=== PATIENT | female | born 1995 | race Caucasian/White ===

== ENCOUNTER 2019-03-18 20:20 | Outpatient (CLI) | payer MEDICAID, SELFPAY ==
[2019-03-18 20:37] VITALS: BP 141/77; PULSE 94; RESP 16; TEMP 36.7
[2019-03-18 21:07] VITALS: BMI 40.6
[2019-03-18 21:17] VITALS: BP 139/70; PULSE 86; RESP 16
[2019-03-18 21:23] VITALS: BP 139/70; PULSE 86; RESP 16; TEMP 36.7
== END 2019-03-18 21:37 | disposition home or self-care (01) ==
LOC: OPOB 20:31 → OBGYN 21:29 → OPOB 03-23 14:44
PROVIDERS: Family Provider Obstetrics & Gynecology; PCP Obstetrics & Gynecology; Visit Provider Obstetrics & Gynecology
DX: O36.8190 Decreased fetal movements, unspecified trimester, not applicable or unspecified (principal); Z3A.00 Weeks of gestation of pregnancy not specified
CPT/HCPCS: 59025; 83986; 99211

== ENCOUNTER 2019-03-19 22:55 | Outpatient (CLI) | payer MEDICAID, SELFPAY ==
[2019-03-19 22:59] VITALS: BP 118/60; PULSE 100; RESP 18
[2019-03-19 23:00] VITALS: TEMP 36.4
[2019-03-19 23:36] VITALS: RESP 20; TEMP 36.6
[2019-03-20 00:01] LABS: Nitrazine Paper, PH Negative
== END 2019-03-19 23:46 | disposition home or self-care (01) ==
LOC: OPOB 22:57 → OBGYN 23:39 → OPOB 03-23 14:48
PROVIDERS: Family Provider Obstetrics & Gynecology; PCP Obstetrics & Gynecology; Visit Provider Obstetrics & Gynecology
DX: O42.90 Premature rupture of membranes, unspecified as to length of time between rupture and onset of labor, unspecified weeks of gestation (principal)
CPT/HCPCS: 83986; 99211

== ENCOUNTER 2019-03-22 12:25 | Inpatient (IN) | payer MEDICAID, SELFPAY ==
[2019-03-22] VITALS (41 sets, daily range): BP systolic 0–170; BP diastolic 0–84; PULSE 73–97; RESP 15–16; TEMP 36.5–37; O2SAT 98–99; BMI 41.3
[2019-03-22] MEDS: miSOPROStol 100 mcg tablet 25 MCG VAGINAL (14:04)
[2019-03-22 15:56] LABS: Basophils % 0.2 %; Eosinophils # 0.1 10^3/uL (0.0-0.8); Eosinophils % 0.5 %; Hematocrit 34.3 % (37.0-47.0); Hemoglobin 10.8 g/dL (11.5-15.3); Lymphocytes # 1.2 10^3/uL (0.8-4.8); Lymphocytes % 12.4 %; Mean Corpuscular HGB Conc 31.5 g/dL (30.0-36.0); Mean Corpuscular Volume 88.9 fL (81-99); Mean Platelet Volume 12.3 fL (7.4-10.4); Monocytes # 0.5 10^3/uL (0.2-0.9); Monocytes % 4.6 %; Neutrophils % 81.9 %; Nucleated Red Blood Cells % 0 %; Platelet Count 215 10^3/cmm (130-400); Red Blood Count 3.86 10^6/uL (4.1-5.3); Red Cell Distribution Width 13.6 % (12.1-15.1); White Blood Count 9.8 10^3/uL (4.0-10.0)
[2019-03-22 18:21] LABS: Alanine Aminotransferase 7 U/L (0-33); Albumin Level 3.6 g/dL (3.5-5.2); Alkaline Phosphatase 133 IU/L (35-105); Anion Gap 17.6 (5-19); Aspartate Amino Transferase 10 U/L (0-32); Blood Urea Nitrogen 8 mg/dL (6-20); Calcium 9.6 mg/Dl (8.6-10.0); Carbon Dioxide 21 mmol/L (22-29); Chloride 99 mmol/L (98-107); Globulin 3.3 g/dL (1.3-4.6); Glomerular Filtration Rate 201.5 mL/min (90-130); Glucose 111 mg/dL (74-109); Potassium 3.6 mmol/L (3.5-5.1); Sodium 134 mmol/L (136-145); Total Bilirubin 0.2 mg/dL (0.15-1.2); Total Protein 6.9 g/dL (6.6-8.7); Uric Acid 3.4 mg/dL (2.4-5.7)
[2019-03-22 18:53] LABS: Urine Creatinine 199 mg/dL (28-217)
[2019-03-22 19:02] LABS: UPRO/UCREAT Ratio 0.08 mg/mg CR; Urine Protein Random 16 mg/dL
[2019-03-22 19:32] LABS: Add Urine Microscopic? YES; Bilirubin Urine Neg (NEGATIVE); Blood Urine Neg (Negative); Glucose Urine UA Norm (Normal); Ketones Urine Negative (Negative); Leukocyte Esterase Urine Negative (Negative); Nitrate Urine Negative (Negative); Protein Urine Neg (Negative); Urine Appearance Turbid (CLEAR); Urine Color Yellow (Yellow); Urobilinogen Urine 1 mg/dL (Negative); pH Urine 5 (5-7)
[2019-03-22 19:33] LABS: Add Urine Culture? No; Amorphous Sediment Urine 4+; Bacteria Urine TRACE; Squamous Epithelial Cell Urine 0-4 (0-5); WBC Urine 0-4 /hpf (0-5)
--- NOTE | 2019-03-22 23:18 | PC.NURSE ---
RN at bedside to assess elevated BP. Patient reports that she was adjusting in bed and cuff noted to have slid down around elbow. The cuff was then readjusted and BP retaken, reading WNL. Will continue to monitor.
[2019-03-23] VITALS (82 sets, daily range): BP systolic 0–155; BP diastolic 0–82; PULSE 69–104; RESP 16–17; TEMP 36.7–37.1; O2SAT 99
[2019-03-23] MEDS: dextrose 5%-lactated ringers 1,000 ML 125 ML IV ×2 (08:54→17:13)
[2019-03-23] MEDS: oxytocin 30 UNIT/500 ML BAG IV (08:55)
--- NOTE | 2019-03-23 10:39 | PM.PN ---
Subjective Subjective: Interval history: Patient is a 23-year-old 1, para 0 with an LMP of 06/14/2018 and an EDC of 03/21/2019 based on LMP and consistent with 22-week ultrasound, which places her at 40-2/7 weeks gestation today. She presented to L&D at 12: 25 on 03/22/2019 for induction of labor due to term . She was noted to have mildly elevated blood pressures on admission and was evaluated for preeclampsia with a negative protein creatinine ratio. The rest of the blood testing was also negative. Blood pressure for the most part has remained normal since that time. She received 1 dose of Cytotec and proceeded to contract regularly. She made slow cervical change during the night. This morning, she was without complaints. She reported mild cramping before being started on Pitocin this morning. She denied leaking of fluid. She denied vaginal bleeding. Reports baby has been moving. Vitals/I&O/Wt Last Vital Signs Temp 98.8 F 03/23/19 08:55 Pulse 74 03/23/19 10:08 Resp 17 03/23/19 08:55 BP 0/0 03/23/19 10:38 Pulse Ox 98 03/22/19 22:03 03/22/19 03/23/19 03/23/19 22:59 06:59 14:59 Intake Total 3.833 / 3.833 Balance 3.833 / 3.833 Weight last 48 hrs Weight 264 lb Physical Exam Const: COMMON NORMALS: no apparent distress, average body habitus, alert and well nourished GENERAL APPEARANCE: well developed ORIENTATION/CONSCIOUSNESS: Yes oriented to person, Yes oriented to place and Yes oriented to time Resp: COMMON NORMALS: normal respiratory effort and clear to auscultation bilaterally AUSCULTATION: clear to auscultation bilaterally Cardio: COMMON NORMALS: regular rate, regular rhythm, no gallops, no murmurs and no rub RATE: regular rate RHYTHM: regular rhythm GI: COMMON NORMALS: soft to palpation, non-tender, no hepatosplenomegaly and no masses (Except for nontender gravid uterus.) AUSCULTATION: Yes normoactive bowel sounds PALPATION: Yes soft, Yes no hepatosplenomegaly and No hernia : EXTERNAL FEMALE EXAM: No hernia OTHER: Cervix: Per nurse: 50% effaced 4 cm dilated -2 station monitoring: heart rate 140s with moderate variability and accelerations present. No decelerations noted. Contractions every 1-1/2 to 5 minutes on Pitocin. Neuro: SENSORIUM/ORIENTATION: Yes alert, Yes oriented to person, Yes oriented to place and Yes oriented to time Psych: COMMON NORMALS: affect normal MOOD & AFFECT: Yes euthymic mood A&P Assessment and plan (1) Encounter for supervision of normal first : Patient has received 1 dose of Cytotec as of yesterday afternoon. She is contracted through the evening and most of the night. This morning, contractions had significantly slowed. She was allowed to eat this morning and was then started on Pitocin. She will be continued on Pitocin for induction through the day. Depending upon response by this evening, she may be continued on Pitocin or potentially switch back to Cytotec again. Discussed with patient that inducing labor can be a very long drawn out process that could take several days. Status: Acute Qualifiers: Trimester: third trimester Qualified Code(s): Z34.03 - Encounter for supervision of normal first , third trimester Code(s): Z34.00 - Encounter for supervision of normal first , unspecified trimester (2) Gestational hypertension: Patient had elevated blood pressures initially with occasional intermittently elevated 1 since. She was evaluated for preeclampsia with negative protein creatinine ratio. None of the blood pressures have met criteria for severe range. Continue to monitor blood pressures. Status: Acute Qualifiers: Trimester: third trimester Qualified Code(s): O13.3 - Gestational [-induced] hypertension without significant proteinuria, third trimester Code(s): O13.9 - Gestational [-induced] hypertension without significant proteinuria, unspecified trimester Attestations Medical Necessity Statement*: Patient being induced for term with gestational hypertension present. Coding Level of Care Code Acute Interior Decorator Paperhanging for Garret Herring Diagnoses Encounter for supervision of normal first Z34.03 Trimester: third trimester Gestational hypertension O13.3 Trimester: third trimester
[2019-03-23] MEDS: lactated ringers 1,000 ML 999 ML IV (21:25)
--- NOTE | 2019-03-23 21:29 | P.PN_ITS ---
Pre-Anesthetic Assessment Pre-Anesthetic Assessment: Height/Weight: Height 1.7 m Weight 119.748 kg Temp Pulse Resp BP Pulse Ox 98.1 F 81 17 0/0 99 03/23/19 12:30 03/23/19 21:58 03/23/19 08:55 03/23/19 22:00 03/23/19 21:58 Preop Diagnosis: IUP Proposed Procedure: Epidural Familial anesthetic complications: none Was Beta Karlo taken within 24 hours: N/A Last intake: 1200 Exam: Pre-Anes Outpt Exam: alert, oriented x 3, clear to auscultation bilaterally and regular rate & rhythm Airway: Submandibular: WNL Cervical ROM: WNL MP: 2 Dentition: Chipped Additional comments: tongue ring History/ROS: No significant complaints Pulmonary: Pulmonary: None reported CV/HEM: CV/HEM: None reported : : None reported Hepatic: Hepatic: None reported GI: GI: GERD Comments: related Metabolic: Metabolic: None reported Musc/skel: Comments: knee surgery as a child Neuropsych: Neuropsych: Anxiety Anesthetic Plan: ASA status: II Anesthesia: Regional (specify below) Other: labor epidural Risk of > 500 ml blood loss (7ml/kg in children): No Meds/Allergies Current Medications: Current Medications Generic Name Dose Route Start Last Admin Trade Name Freq PRN Reason Stop Dose Admin Dextrose/Lactated Ringer's 1,000 mls @ 125 m ls/hr 03/22/19 13:30 03/23/19 17:13 Dextrose 5%-Lact ated Ringers IV 125 mls/hr .Q8H JOSEFINA Administration Ropivacaine 200 mg in 100 mls @ 13 mls/hr 03/22/19 23:45 03/23/19 22:01 Naropin Premix EPIDURAL 13 mls/hr .Q7H42M JOSEFINA Administration Oxytocin 30 unit in 500 ml s @ 0 mls/hr 03/23/19 07:15 03/23/19 15:00 Pitocin IV 20 mls/hr .Q0M JOSEFINA Titration Protocol Per Protocol Lactated Ringer's 1,000 mls @ 999 m ls/hr 03/23/19 21:21 03/23/19 21:25 Lactated Ringers IV 999 mls/hr .Q1H1M PRN Administration HYPOTENSION PFSH Anesthesia PFSH: Family History (Updated 03/22/19 @ 16:25 by Margret Cohn RN) Father Diabetes Female Reproductive History: : 1 Data Anesthesia Labs: Other Labs: Laboratory Results - last 48 hr 03/22/19 03/22/19 03/22/19 13:05 16:30 16:30 WBC 9.8 RBC 3.86 L Hgb 10.8 L Hct 34.3 L MCV 88.9 MCH 28.0 MCHC 31.5 RDW 13.6 Plt Count 215 MPV 12.3 H Neut % (Auto) 81.9 Lymph % (Auto) 12.4 Davison % (Auto) 4.6 Eos % (Auto) 0.5 Baso % (Auto) 0.2 Neut # (Auto) 8.0 H Lymph # (Auto) 1.2 Davison # (Auto) 0.5 Eos # (Auto) 0.1 Baso # (Auto) 0.0 Nucleated RBC % (a uto) 0 Nucleated RBCs # 0.0 Sodium Potassium Chloride Carbon Dioxide Anion Gap BUN Creatinine GFR Calculation Glucose Uric Acid Calcium Total Bilirubin AST ALT Alkaline Phosphata se Total Protein Albumin Globulin Urine Color Yellow Urine Appearance Turbid Urine pH 5 Ur Specific Gravit y 1.020 Urine Protein Neg Urine Glucose (UA) Norm Urine Ketones Negative Urine Occult Blood Neg Urine Nitrate Negative Urine Bilirubin Neg Urine Urobilinogen 1 H Ur Leukocyte Telma ase Negative Urine RBC None Urine WBC 0-4 H Ur Squamous Epith Cells 0-4 H Amorphous Sediment 4+ Urine Bacteria Trace U Random Total Pro tein 16 Urine Creatinine 199 Protein/Creatinin Ratio 0.08 03/22/19 17:38 WBC RBC Hgb Hct MCV MCH MCHC RDW Plt Count MPV Neut % (Auto) Lymph % (Auto) Davison % (Auto) Eos % (Auto) Baso % (Auto) Neut # (Auto) Lymph # (Auto) Davison # (Auto) Eos # (Auto) Baso # (Auto) Nucleated RBC % (a uto) Nucleated RBCs # Sodium 134 L Potassium 3.6 Chloride 99 Carbon Dioxide 21 L Anion Gap 17.6 BUN 8 Creatinine 0.4 L GFR Calculation 201.5 H Glucose 111 H Uric Acid 3.4 Calcium 9.6 Total Bilirubin 0.2 AST 10 ALT 7 Alkaline Phosphata se 133 H Total Protein 6.9 Albumin 3.6 Globulin 3.3 Urine Color Urine Appearance Urine pH Ur Specific Gravit y Urine Protein Urine Glucose (UA) Urine Ketones Urine Occult Blood Urine Nitrate Urine Bilirubin Urine Urobilinogen Ur Leukocyte Telma ase Urine RBC Urine WBC Ur Squamous Epith Cells Amorphous Sediment Urine Bacteria U Random Total Pro tein Urine Creatinine Protein/Creatinin Ratio Cardiac Studies: No Data to Display
--- NOTE | 2019-03-23 22:04 | ANES.PROC ---
Anesthesia Procedures Procedure/Date: 03/23/19 Epidural: Time Out Performed: Yes Consents Signed: Procedure Consent Consent: from patient Lumbar Level: L3-L4 Epidural position: sitting Epidural procedure: sterile prep of area, 1% lidocaine to numb the area, 18 g needle, negative for paresthesia passed, neg for paresthesia, test dose given, 1.5% xylocaine 1:200k epi, placed PCEA, no systemic response, sterile dressing applied, L.U.D. no apparent complications and 0.2% Ropiavacaine @ mls/hr Additional Comments: 13mL/hr
[2019-03-24] VITALS (81 sets, daily range): BP systolic 0–180; BP diastolic 0–99; PULSE 70–109; RESP 16; TEMP 36.4–37.3; O2SAT 96–99
[2019-03-24] MEDS: dextrose 5%-lactated ringers 1,000 ML 125 ML IV ×2 (03:28→12:09)
--- NOTE | 2019-03-24 08:11 | PM.PN ---
Subjective Subjective: Interval history: 23-year-old female with an estimated gestational age at 40 weeks. Refers feeling fine Vitals/I&O/Wt Last Vital Signs Temp 98.8 F 03/24/19 04:00 Pulse 83 03/24/19 08:03 Resp 17 03/23/19 08:55 BP 99/65 03/24/19 08:03 Pulse Ox 99 03/23/19 21:58 03/23/19 03/24/19 03/24/19 22:59 06:59 14:59 Intake Total 2065.050 1100 / 3166.050 Output Total 400 / 400 Balance 2065.050 700 / 2766.050 Weight last 48 hrs Weight 264 lb Physical Exam Narrative: EXAM NARRATIVE: GA: Alert and oriented ?3. Lungs: Clear to auscultation bilaterally. Heart: Regular rhythm and rate. Abdomen: Gravid, fundal height Correlates dates, nontender. PEDIATRIC MEDICAL ASSISTANT: SVE; dilation: 10 cm, effacement: 100 %, station: +2, presentation: Vertex, membranes: AROM. Extremities: no edema, no cyanosis, no calves pain. heart tracing: Basal rate: 140 bpm, Variability: Moderate, Accelerations: Present, Decelerations: Absent, Contractions: Every 4-5 minutes. A&P Assessment and plan (1) Term : Patient in active labor. Progressing adequately. heart tracing category 1. scalp stimulation. Anticipate vaginal delivery. Continue monitoring. Status: Acute Code(s): Z34.90 - Encounter for supervision of normal , unspecified, unspecified trimester Attestations Medical Necessity Statement*: My professional opinion per admitting diagnosis Coding Level of Care Code Acute Wire Bender Hand for Chg Fwd Diagnoses Term Z34.90
[2019-03-24] MEDS: miSOPROStol 200 mcg Tablet 800 MCG PR (09:05)
[2019-03-24] MEDS: oxytocin 30 UNIT/500 ML BAG 600 UNIT IV (09:08)
--- NOTE | 2019-03-24 09:08 | PM.DELIVERY ---
 Delivery Note: Date of delivery: 03/24/19 Pre-delivery diagnoses: Term Post-delivery diagnoses: Term delivered Procedure: Spontaneous vaginal delivery Delivering Physician: Asa garzon M.D. Estimated blood loss (mL): 500 Findings: Baby boy, Apgars 8/9 weight 4111 g Pre-Delivery Course: The patient is a 23yo at 40 +2 weeks EGA who has been receiving care from [facility]. Admitted to labor and delivery for elective induction. She denies vaginal bleeding or rupture of membranes. LMP: 06/14/2018 Estimated date of confinement: 03/21/2019 by LMP and confirmed by US on 11/18/18. CC: Elective induction HPI: Received appropriate care. Daily vitamins since two months prior to conception. labs have all been normal, including negative for HIV. She was found to Negative for Group B Strep from screening at 36 weeks. She has gained approximately 52 lbs throughout the . She denies a history of HTN during care . Glucose tolerance screening for gestational diabetes was negative. Delivery: The patient was noted to be complete and pushing, so was placed in the dorsal lithotomy position, prepped and draped in the usual sterile fashion for a vaginal delivery. Pt. Noted to have epidural anesthesia. At 0 858 the patient delivered a viable At 40 weeks weighing 4111 g with scores of 8 and 9 at one and five minutes, respectively. The vertex was delivered spontaneously over Intact perineum. The patient was asked to push and the head delivered spontaneously in the CORINA position, over an intact perineum. A nuchal cord was checked and none noted. The anterior shoulder delivered easily and the posterior shoulder followed. The remainder of the was easily delivered and the oropharynx and nasopharynx was bulb suctioned. The was noted to have spontaneous cry and spontaneous movement of all four extremities. The cord was clamped x 2 and cut and noted to have 2 arteries and one vein. The infant was passed to the Mother's abdomenwhere Nursing personnel were in attendance. Cord blood sample was then Obtained. The placenta delivered intact Spontaneously and the uterus Was explored. 20 units of Pitocin was placed in the IV bag to firm the uterus. Examination of the cervix and vaginal vault did not reveal any lacerations. A vaginal pack was then placed. 800 mg of misoprostol was given rectally due to uterine atony. Examination of the perineum showed No lacerations. The vaginal pack was then removed. The patient tolerated this procedure well, and recovered in L&D with her infant To the OB martinez. All sponge and needle counts were correct. Post-Delivery Status: Stable A&P Assessment and plan (1) Term delivered: Status: Acute Code(s): O80 - Encounter for full-term uncomplicated delivery Coding Level of Care Code Acute Soil Biology Teacher for Chg Fwd Diagnoses Term delivered O80
--- NOTE | 2019-03-24 12:28 | PC.NURSE ---
BABY LATCHES BUT GOES TO SLEEP. COMES OFF THE BREAST AFTER BRIEF BURST OF SUCKING. TAUGHT MOM TO [employer] COLOSTRUM. SHE OBTAINED ABOUT 1 ML OF COLOSTRUM AND THIS WAS FED TO BABY BY CUP. BABY ACTUALLY STARTED TO SHOW INTEREST IN FEEDING, MOM UP TO BATHROOM AND NEEDED HER IV RESTARTED. WILL OFFER BREAST ONCE MOM SETTLED AGAIN.
[2019-03-24] MEDS: docusate sodium 100 mg Capsule PO (18:12)
[2019-03-24 21:10] LABS: Hematocrit 28.7 % (37.0-47.0); Hemoglobin 9.2 g/dL (11.5-15.3); Mean Corpuscular HGB Conc 32.1 g/dL (30.0-36.0); Mean Corpuscular Volume 87.5 fL (81-99); Mean Platelet Volume 11.3 fL (7.4-10.4); Platelet Count 186 10^3/cmm (130-400); Red Blood Count 3.28 10^6/uL (4.1-5.3); Red Cell Distribution Width 13.6 % (12.1-15.1); White Blood Count 12.5 10^3/uL (4.0-10.0)
[2019-03-25 06:30] VITALS: BP 96/63; PULSE 92; RESP 16; TEMP 36.8
[2019-03-25] MEDS: lanolin oint 7 gm 1 APPLIC TOPICAL (10:01)
[2019-03-25] MEDS: benzocaine-menthol 78 gm Canister 1 SPRAY TOPICAL (10:01)
[2019-03-25] MEDS: prenatal vitamin Capsule 1 CAP PO (10:02)
[2019-03-25] MEDS: docusate sodium 100 mg Capsule PO (10:02)
[2019-03-25 10:06] VITALS: BP 104/62; PULSE 89; RESP 16; TEMP 36.4; O2SAT 98
[2019-03-25 15:31] VITALS: BP 107/67; PULSE 97; RESP 18; TEMP 36.8; O2SAT 97
--- NOTE | 2019-03-25 17:33 | P.DS_ITS ---
Discharge Providers ELECTRIC BLANKET WIRER Date of Admission: 03/22/19 12:25 Date of Discharge: 03/25/19 Attending Provider at Admission: Asa Rowley Attending Provider at Discharge: Asa Rowley Primary Care Provider: Asa Rowley Diagnoses at Discharge Discharge Diagnosis (1) Term delivered: Status: Acute Problem details: P1 status post spontaneous vaginal delivery day 1. observation without complications. Hospital Course Hospital Course: 23-year-old female with an estimated gestational age of 40 weeks, admitted for elective induction. Misoprostol was given for cervical ripening. She had adequate progression of labor and had a spontaneous vaginal delivery Without complications. She delivered a male Apgars 8/9. observation was uneventful. She is afebrile hemodynamically stable. Tolerating diet well. Ambulating without difficulty. Information Peripartum Data: Delivery Method: Vaginal Physical Exam Const: COMMON NORMALS: no apparent distress, oriented x3, healthy appearing, alert and well nourished EXAM LIMITATIONS: no altered mental status GENERAL APPEARANCE: cooperative, well kempt and well hydrated ORIENTATION/CONSCIOUSNESS: Yes awake HENMT: COMMON NORMALS: normocephalic and head/scalp atraumatic HEAD & SCALP: normocephalic and atraumatic Neck/C-Spine: COMMON NORMALS: full ROM, no lymphadenopathy, no meningeal signs and no JVD GENERAL: Yes normal visual inspection Chest: NIPPLE/AREOLA: Yes nipples/areola normal and Yes nipple discharge (Colostrum ) Resp: COMMON NORMALS: normal respiratory effort; negative for no use of accessory muscles EFFORT & INSPECTION: Yes able to speak in complete sentences and No abnormal respiratory pattern Cardio: COMMON NORMALS: no JVD, regular rate and regular rhythm RATE: regular rate RHYTHM: regular rhythm GI: COMMON NORMALS: normal to inspection, nondistended, normoactive bowel sounds, soft to palpation, non-tender, no hepatosplenomegaly and no masses (Uterus below umbilicus) PALPATION: Yes soft and Yes no hepatosplenomegaly : COMMON NORMALS: Yes no CVA tenderness and Yes external appearance normal BLADDER/KIDNEY EXAM: Yes no CVA tenderness BIMANUAL EXAM - VAGINA & UTERUS: Yes uterus enlarged and Yes other (Normal lochia) UTERUS PALPATION: No uterus tender and Yes other OB (Below umbilicus) Back/Pelvis: COMMON NORMALS: no CVA tenderness LUMBAR SPINE/LOWER BACK: Yes normal to inspection and No pain with ROM Extremity: GENERAL: No calf tenderness and No edema Neuro: COMMON NORMALS: oriented x3 and moves all extremities SENSORIUM/ORIENTATION: Yes alert MENINGEAL SIGNS: Yes no meningeal signs SPEECH: speech normal GAIT: Yes normal gait Psych: COMMON NORMALS: mental status grossly normal, thought process normal, cooperative, affect normal, speech normal, activity/motor behavior normal, denies homicidal ideation and denies suicidal ideation APPEARANCE: Yes grossly normal and Yes well kempt ATTITUDE: Yes calm and Yes engaged ACTIVITY/MOTOR BEHAVIOR: Yes appropriate eye contact SPEECH: Yes normal speech THOUGHT PROCESS: normal thought process THOUGHT CONTENT: Yes normal thought content INSIGHT: insight good Skin: COMMON NORMALS: no rashes or lesions noted GENERAL SKIN EXAM: no rashes or lesions noted Discharge Data Data Completed and Pending: Labs from last 24 hours 03/24/19 03/24/19 03/22/19 21:01 21:01 13:05 WBC 12.5 H RBC 3.28 L Hgb 9.2 L Hct 28.7 L MCV 87.5 MCH 28.0 MCHC 32.1 RDW 13.6 Plt Count 186 MPV 11.3 H Blood Type B Negative Antibody Screen Negative Screen Negative Vitals: Last Vital Signs Temp 98.3 F 03/25/19 15:31 Pulse 97 03/25/19 15:31 Resp 18 03/25/19 15:31 BP 107/67 03/25/19 15:31 Pulse Ox 97 03/25/19 15:31 Discharge Plan Discharge Patient Disposition: Home, Self-Care Condition: Stable Prescriptions: New docusate sodium 100 mg Capsule 100 mg PO BID Qty: 60 RF: 0 acetaminophen 325 mg Tablet 650 mg PO Q6H PRN (Reason: Mild pain or temp > 100.4) Qty: 60 RF: 0 ibuprofen 800 mg Tablet 800 mg PO TID Qty: 60 RF: 0 Continued buspirone 5 mg Tablet 5 mg PO BID RF: 0 ferrous sulfate 325 mg (65 mg iron) Tablet 325 mg PO DAILY RF: 0 PNV [id number] fumarate-FA [] 28 mg iron- 800 mcg Tablet 1 tab PO DAILY RF: 0 Discharge Orders: Discharge Order (Routine); Ordered 03/25/19 Ordered By: Asa Rowley Discharge Diet: Regular Discharge Activity: Increase activity as tolerated Activity Restrictions/Additional Instructions: Pelvic rest for 6 weeks. Return to the emergency room if any fever, increased bleeding or pain Discharge Attestations ELECTRIC BLANKET WIRER Time Spent in Discharge Care*: greater than 30 min Specific Discharge Activities: Specific discharge activities: educating patient Coding Level of Care Code Acute Emblem Maker for Teog Fwd Diagnoses Term delivered O80
[2019-03-25] MEDS: measles,mumps,rubella pf Vial (w/diluent) 0.5 ML SUBCUT (20:03)
[2019-03-25 20:20] VITALS: BP 110/64; PULSE 95; RESP 16; TEMP 36.7; O2SAT 98
== END 2019-03-25 20:40 | disposition home or self-care (01) | DRG 807 ==
PROVIDERS: Admitting Provider Obstetrics & Gynecology; Family Provider Obstetrics & Gynecology; PCP Obstetrics & Gynecology; Visit Provider Obstetrics & Gynecology
DX: O48.0 Post-term pregnancy (principal); Z37.0 Single live birth; Z3A.40 40 weeks gestation of pregnancy
CPT/HCPCS: 36415; 51702; 59409; 80053; 81003; 82570; 83986; 84156; 84315; 84550; 85025; 85027; 86850; 86900; 90384; 90707; 96372; 98960; J2795

== ENCOUNTER → 2019-05-09 14:30 | Outpatient (BNVA) | payer MEDICAID, SELFPAY | PROVIDERS: Family Provider Obstetrics & Gynecology; PCP Obstetrics & Gynecology; Visit Provider Obstetrics & Gynecology | DX: Z34.90 Encounter for supervision of normal pregnancy, unspecified, unspecified trimester (principal); Z30.9 Encounter for contraceptive management, unspecified | CPT/HCPCS: 81025 ==

== ENCOUNTER → 2019-08-12 09:33 | Outpatient (BNVA) | payer MEDICAID, SELFPAY | PROVIDERS: Family Provider Obstetrics & Gynecology; PCP Obstetrics & Gynecology; Visit Provider Obstetrics & Gynecology | DX: Z30.46 Encounter for surveillance of implantable subdermal contraceptive (principal); R30.0 Dysuria; R10.2 Pelvic and perineal pain | CPT/HCPCS: 81000; 81025 ==

== ENCOUNTER 2021-12-07 10:18 | Emergency (ER) | payer MEDICAID, SELFPAY ==
--- NOTE | 2021-12-07 10:25 | XRR_ITS ---
PROCEDURE INFORMATION: Exam: XR Left Ankle Exam date and time: 12/07/2021 10:45 AM Age: 26 years old Clinical indication: Pain; Ankle; Left TECHNIQUE: Imaging protocol: Radiologic exam of the Left ankle. Views: 3 or more views. Total images: 3 COMPARISON: No relevant prior studies available. FINDINGS: Bones/joints: Normal. Soft tissues: Normal. XR/XR ankle LT min 3V* [id number] IMPRESSION: No acute findings.
[2021-12-07 10:31] VITALS: BP 142/76; PULSE 92; RESP 14; TEMP 36.4; O2SAT 98; BMI 33.4
--- NOTE | 2021-12-07 10:59 | W.ED.EXTPRO ---
HPI - Extremity Problem General: Chief complaint: Extremity Injury, Lower Stated complaint: left ankle is in pain Time Seen by Provider: 12/07/21 10:25 Source: patient Mode of arrival: ambulatory History of Present Illness: 26-year-old female presents emergency room complaining of left ankle pain she twisted her left ankle while stepping off a porch last night she has been able to bear weight since then no previous injury to the ankle. She denies any other injury associated with that episode. MD Complaint: joint pain (Left ankle) Onset (ago): hour(s) Pain Consistency: constant Location: left (Ankle) Quality: sharp Radiation: none Relieving factors: rest Exacerbating factors: weight bearing and walking Associated symptoms: Deny arthralgias, chest pain, fever(s), myalgias, rash or short of breath Review of Systems Const: Denies: fever(s), chills, fatigue or malaise ENMT: Denies: throat pain, ear or mastoid pain, nasal discharge or nasal congestion Card: Denies: chest pain Resp: Denies: dyspnea, productive cough or non-productive cough GI: Denies: abdominal pain, nausea, vomiting, hematemesis, coffee ground emesis, diarrhea, constipation, bloating, hematochezia or melena : Denies: flank pain, difficulty voiding, dysuria, urinary frequency or urinary urgency Skin/Breast: Denies: rash PFSH ED PFSH: Medical History (Updated 12/07/21 @ 11:06 by Maninder Casanova DO) Abnormal uterine bleeding (AUB) Anxiety History of OCD (obsessive compulsive disorder) Implantable subdermal contraceptive surveillance Knee cartilage, torn, right RhD negative Family History Father Diabetes Hypertension Grandmother Hypertension maternal Grandfather Hypertension paternal Denies family history of Clotting disorder Hyperlipidemia Anesthesia complication Bleeding disorder Stroke Social History Smoking and tobacco status: never smoked Alcohol intake: never Physical Exam Const: COMMON NORMALS: no acute distress GENERAL APPEARANCE: cooperative and comfortable ORIENTATION/CONSCIOUSNESS: Yes awake, Yes oriented to person, Yes oriented to place and Yes oriented to time HENMT: COMMON NORMALS: normocephalic and atraumatic HEAD & SCALP: normocephalic and atraumatic Extremity: OTHER: Left ankle moderate joint effusion no ecchymosis no deformity patient is able to plantar flex and dorsiflex with mild discomfort but able to hold against resistance. Neurovascularly intact. Neuro: SENSORIUM/ORIENTATION: Yes oriented to person, Yes oriented to place and Yes oriented to time Course Vital Signs: Vital signs: Vital Signs Temperature 97.6 F 12/07/21 10:31 Pulse Rate 92 12/07/21 10:31 Respiratory Rate 14 12/07/21 10:31 Blood Pressure 142/76 12/07/21 10:31 Pulse Oximetry 98 12/07/21 10:31 Oxygen Delivery Me thod 12/07/21 10:31 MDM - Extremity (Nontraumatic) Medical Decision Making X-ray negative ice elevate anti-inflammatories as needed weightbearing as tolerated Lab Data I reviewed the patient's lab results. (X-ray negative) Discharge Plan Discharge Patient Disposition: Home Clinical Impression: Ankle sprain and strain Condition: Stable Prescriptions: New diclofenac sodium 75 mg tablet,delayed release (DR/EC) 75 mg PO Q12H PRN (Reason: pain) Qty: 20 0RF No Action Nexplanon 68 mg implant SUBDERMAL acetaminophen 325 mg Tablet 650 mg PO Q6H PRN (Reason: Mild pain or temp > 100.4) Qty: 60 0RF Discharge Orders: Discharge ED (Routine); Ordered 12/07/21 Ordered By: Maninder Casanova Referrals: Asa Rowley MD [Primary Care Provider] - Discharge Diet: Usual diet Discharge Activity: Increase activity as tolerated Patient Instructions: Ankle Sprain (ED), Opioid Safety, Pain Management Activity Restrictions/Additional Instructions: Weightbearing as tolerated ice and elevate you can use the diclofenac as needed. If you use diclofenac do not use ibuprofen or Aleve. Coding Level of Care Code ED Nailer Operator for Garret Herring
== END 2021-12-07 11:16 | disposition home or self-care (01) ==
PROVIDERS: Emergency Provider Family Medicine; PCP Obstetrics & Gynecology
DX: S93.402A Sprain of unspecified ligament of left ankle, initial encounter (principal); X50.1XXA Overexertion from prolonged static or awkward postures, initial encounter
CPT/HCPCS: 73610; 99283

== ENCOUNTER → 2022-06-27 14:18 | Outpatient (BNVA) | payer MEDICAID, SELFPAY | PROVIDERS: PCP Family Medicine; Visit Provider Family Medicine | DX: Z68.35 Body mass index [BMI] 35.0-35.9, adult (principal) | CPT/HCPCS: 80053; 80061; 84439; 84443; 85025 ==

== ENCOUNTER → 2022-08-05 11:15 | Outpatient (BNVA) | payer MEDICAID, SELFPAY | PROVIDERS: PCP Family Medicine; Visit Provider Obstetrics & Gynecology | DX: Z01.419 Encounter for gynecological examination (general) (routine) without abnormal findings (principal) | CPT/HCPCS: 88175 ==

== ENCOUNTER → 2022-11-04 08:34 | Outpatient (BNVA) | payer MEDICAID, SELFPAY | PROVIDERS: PCP Family Medicine; Visit Provider Nurse Practitioner Women's Health | DX: Z34.00 Encounter for supervision of normal first pregnancy, unspecified trimester (principal); Z3A.00 Weeks of gestation of pregnancy not specified | CPT/HCPCS: 81025 ==

== ENCOUNTER → 2022-11-07 14:33 | Outpatient (BNVA) | payer MEDICAID, SELFPAY | PROVIDERS: PCP Family Medicine; Visit Provider Nurse Practitioner | DX: R06.02 Shortness of breath (principal) | CPT/HCPCS: 87426 ==

== ENCOUNTER → 2022-11-12 07:47 | Outpatient (BNVA) | payer MEDICAID, SELFPAY | PROVIDERS: PCP Family Medicine; Visit Provider Nurse Practitioner Women's Health | DX: Z34.91 Encounter for supervision of normal pregnancy, unspecified, first trimester (principal); Z3A.08 8 weeks gestation of pregnancy | CPT/HCPCS: 76801; 81000 ==

== ENCOUNTER → 2022-11-14 09:50 | Outpatient (BNVA) | payer MEDICAID, SELFPAY | PROVIDERS: PCP Family Medicine; Visit Provider Nurse Practitioner Women's Health | DX: Z34.80 Encounter for supervision of other normal pregnancy, unspecified trimester | CPT/HCPCS: 80307; 81000; 85027; 86592; 86762; 86803; 86850; 86900; 87086; 87340; 87806 ==

== ENCOUNTER → 2022-12-01 13:03 | Outpatient (BNVA) | payer MEDICAID, SELFPAY | PROVIDERS: PCP Family Medicine; Visit Provider Obstetrics & Gynecology | DX: Z34.80 Encounter for supervision of other normal pregnancy, unspecified trimester (principal) | CPT/HCPCS: 80307; 81000; 82950; 85027; 86592; 86762; 86803; 86850; 86900; 87086; 87340; 87491; 87591; 87806 ==

== ENCOUNTER → 2023-01-06 13:02 | Outpatient (BNVA) | payer MEDICAID, SELFPAY | PROVIDERS: PCP Family Medicine; Visit Provider Nurse Practitioner Women's Health | DX: O99.210 Obesity complicating pregnancy, unspecified trimester; Z67.91 Unspecified blood type, Rh negative | CPT/HCPCS: 81000 ==

== ENCOUNTER → 2023-02-01 11:11 | Outpatient (BNVA) | payer MEDICAID, SELFPAY | PROVIDERS: PCP Family Medicine; Visit Provider Nurse Practitioner | DX: J02.9 Acute pharyngitis, unspecified (principal) | CPT/HCPCS: 87880 ==

== ENCOUNTER → 2023-02-03 10:11 | Outpatient (BNVA) | payer MEDICAID, SELFPAY | PROVIDERS: PCP Family Medicine; Visit Provider Obstetrics & Gynecology | DX: Z34.92 Encounter for supervision of normal pregnancy, unspecified, second trimester (principal); Z3A.21 21 weeks gestation of pregnancy | CPT/HCPCS: 76805 ==

== ENCOUNTER → 2023-02-12 09:19 | Outpatient (BNVA) | payer MEDICAID, SELFPAY | PROVIDERS: PCP Family Medicine; Visit Provider Obstetrics & Gynecology | DX: Z34.80 Encounter for supervision of other normal pregnancy, unspecified trimester (principal); Z3A.00 Weeks of gestation of pregnancy not specified | CPT/HCPCS: 81000 ==

== ENCOUNTER → 2023-02-26 08:43 | Outpatient (BNVA) | payer MEDICAID, SELFPAY | PROVIDERS: PCP Family Medicine; Visit Provider Obstetrics & Gynecology | DX: Z34.92 Encounter for supervision of normal pregnancy, unspecified, second trimester (principal); Z3A.25 25 weeks gestation of pregnancy | CPT/HCPCS: 76816 ==

== ENCOUNTER → 2023-03-18 10:34 | Outpatient (BNVA) | payer MEDICAID, SELFPAY | PROVIDERS: PCP Family Medicine; Visit Provider Nurse Practitioner Women's Health | DX: Z34.80 Encounter for supervision of other normal pregnancy, unspecified trimester (principal); Z3A.00 Weeks of gestation of pregnancy not specified | CPT/HCPCS: 81000; 82950 ==

== ENCOUNTER → 2023-03-27 08:39 | Outpatient (BNVA) | payer MEDICAID, SELFPAY | PROVIDERS: PCP Family Medicine; Visit Provider Nurse Practitioner Women's Health | DX: O99.212 Obesity complicating pregnancy, second trimester (principal); E66.09 Other obesity due to excess calories; Z3A.00 Weeks of gestation of pregnancy not specified | CPT/HCPCS: 82951; 82952 ==

== ENCOUNTER → 2023-04-03 13:04 | Outpatient (BNVA) | payer MEDICAID, SELFPAY | PROVIDERS: PCP Family Medicine; Visit Provider Nurse Practitioner Women's Health | DX: Z34.80 Encounter for supervision of other normal pregnancy, unspecified trimester (principal); Z3A.00 Weeks of gestation of pregnancy not specified | CPT/HCPCS: 81000; 85025; 86850 ==

== ENCOUNTER → 2023-04-10 09:46 | Outpatient (BNVA) | payer MEDICAID, SELFPAY | PROVIDERS: PCP Family Medicine; Visit Provider Obstetrics & Gynecology | DX: Z34.80 Encounter for supervision of other normal pregnancy, unspecified trimester (principal); Z3A.00 Weeks of gestation of pregnancy not specified | CPT/HCPCS: 81000 ==

== ENCOUNTER 2023-04-16 16:40 | Outpatient (CLI) | payer MEDICAID, SELFPAY ==
[2023-04-16 16:57] VITALS: TEMP 36.1
[2023-04-16 16:58] VITALS: BP 123/58; PULSE 90
[2023-04-16 17:11] VITALS: RESP 16; BMI 39.5
[2023-04-16 17:24] LABS: Nitrazine Paper, PH Inconclusive
== END 2023-04-16 17:31 | disposition home or self-care (01) ==
LOC: OPOB 16:50 → OBGYN 16:51
PROVIDERS: PCP Family Medicine; Visit Provider Obstetrics & Gynecology
DX: O26.899 Other specified pregnancy related conditions, unspecified trimester (principal); Z3A.00 Weeks of gestation of pregnancy not specified; N89.8 Other specified noninflammatory disorders of vagina
CPT/HCPCS: 59025; 83986; 99211

== ENCOUNTER → 2023-04-23 13:46 | Outpatient (BNVA) | payer MEDICAID, SELFPAY | PROVIDERS: PCP Family Medicine; Visit Provider Obstetrics & Gynecology | DX: Z34.80 Encounter for supervision of other normal pregnancy, unspecified trimester (principal); Z3A.00 Weeks of gestation of pregnancy not specified | CPT/HCPCS: 81000 ==

== ENCOUNTER → 2023-04-30 13:31 | Outpatient (BNVA) | payer MEDICAID, SELFPAY | PROVIDERS: PCP Family Medicine; Visit Provider Obstetrics & Gynecology | DX: Z34.93 Encounter for supervision of normal pregnancy, unspecified, third trimester (principal); Z3A.33 33 weeks gestation of pregnancy | CPT/HCPCS: 76816 ==

== ENCOUNTER → 2023-05-07 09:12 | Outpatient (BNVA) | payer MEDICAID, SELFPAY | PROVIDERS: PCP Family Medicine; Visit Provider Nurse Practitioner Women's Health | DX: O99.019 Anemia complicating pregnancy, unspecified trimester (principal); Z3A.00 Weeks of gestation of pregnancy not specified | CPT/HCPCS: 81000; 85025 ==

== ENCOUNTER → 2023-05-21 14:40 | Outpatient (BNVA) | payer MEDICAID, SELFPAY | PROVIDERS: PCP Family Medicine; Visit Provider Obstetrics & Gynecology | DX: Z34.90 Encounter for supervision of normal pregnancy, unspecified, unspecified trimester (principal); Z3A.00 Weeks of gestation of pregnancy not specified | CPT/HCPCS: 81000; 87081 ==

== ENCOUNTER 2023-05-26 17:50 | Outpatient (CLI) | payer MEDICAID, SELFPAY ==
[2023-05-26] VITALS (12 sets, daily range): BP systolic 116–147; BP diastolic 63–75; PULSE 83–102; RESP 18; BMI 41.8
[2023-05-26 18:41] LABS: Add Urine Microscopic? NO; Charge for UA Resulting for Rev
[2023-05-26 18:51] LABS: Basophils % 0.3 %; Eosinophils # 0.1 10^3/uL (0.0-0.8); Hematocrit 36.1 % (36-47); Lymphocytes % 20.3 %; Mean Corpuscular HGB Conc 28.8 g/dL (30-55); Mean Corpuscular Hemoglobin 27.7 pg (27-33); Mean Platelet Volume 11.7 fL (7.4-10.4); Monocytes # 0.6 10^3/uL (0.2-0.9); Monocytes % 6.3 %; Neutrophils # 6.89 10^3/uL (1.8-7.7); Neutrophils % 71.9 %; Nucleated Red Blood Cells % 0 %; Platelet Count 165 10^3/cmm (157-399); Red Blood Count 3.76 10^6/uL (3.85-5.65); Red Cell Distribution Width 13.7 % (12.1-15.1); White Blood Count 9.59 10^3/uL (3.29-11.43)
[2023-05-26 18:55] LABS: Bilirubin Urine Neg (Negative); Blood Urine Neg (Negative); Glucose Urine UA Norm (Normal); Ketones Urine Negative (Negative); Leukocyte Esterase Urine Negative (Negative); Nitrate Urine Negative (Negative); Protein Urine Neg (Negative); Urine Appearance Clear (CLEAR); Urine Color Yellow (Yellow); Urobilinogen Urine Norm (Negative); pH Urine 6 (5-7)
[2023-05-26 19:02] LABS: Alanine Aminotransferase 6 U/L (0-33); Albumin Level 3.3 g/dL (3.5-5.2); Alkaline Phosphatase 92 U/L (35-105); Anion Gap 13.8 (5-19); Aspartate Amino Transferase 11 U/L (0-32); Blood Urea Nitrogen 8 mg/dL (6-20); Calcium 8.8 mg/dL (8.5-10.5); Carbon Dioxide 22 mmol/L (22-29); Chloride 104 mmol/L (98-107); Creatinine Clr Calc Pharmacy 299.4788; Globulin 3.2 g/dL (1.3-4.6); Glomerular Filtration Rate 194.5 mL/min (90-130); Glucose 99 mg/dL (65-115); Osmolality Calculated 280 mOsm/kg (285-295); Potassium 3.8 mmol/L (3.5-5.1); Sodium 136 mmol/L (136-145); Total Bilirubin 0.2 mg/dL (0.15-1.2); Total Protein 6.5 g/dL (6.6-8.7); Uric Acid 2.7 mg/dL (2.4-5.7)
[2023-05-26 20:41] LABS: Urine Creatinine 88 mg/dL (28-217); Urine Protein Random 8 mg/dL
[2023-05-26 20:42] LABS: UPRO/UCREAT Ratio 0.09 mg/mg CR
== END 2023-05-26 19:01 | disposition home or self-care (01) ==
LOC: OPOB 17:52 → OBGYN 17:53
PROVIDERS: PCP Family Medicine; Visit Provider Obstetrics & Gynecology
DX: O16.9 Unspecified maternal hypertension, unspecified trimester (principal); Z3A.00 Weeks of gestation of pregnancy not specified
CPT/HCPCS: 36415; 59025; 80053; 81003; 82570; 84156; 84550; 85025; 99211

== ENCOUNTER → 2023-05-28 14:50 | Outpatient (BNVA) | payer MEDICAID, SELFPAY | PROVIDERS: PCP Family Medicine; Visit Provider Obstetrics & Gynecology | DX: Z34.80 Encounter for supervision of other normal pregnancy, unspecified trimester (principal); F43.21 Adjustment disorder with depressed mood | CPT/HCPCS: 81000 ==

== ENCOUNTER → 2023-06-01 08:19 | Outpatient (BNVA) | payer MEDICAID, SELFPAY | PROVIDERS: PCP Family Medicine; Visit Provider Obstetrics & Gynecology | DX: Z34.93 Encounter for supervision of normal pregnancy, unspecified, third trimester (principal); Z3A.39 39 weeks gestation of pregnancy | CPT/HCPCS: 76816 ==

== ENCOUNTER → 2023-06-04 08:00 | Outpatient (BNVA) | payer MEDICAID, SELFPAY | PROVIDERS: PCP Family Medicine; Visit Provider Obstetrics & Gynecology | DX: Z34.80 Encounter for supervision of other normal pregnancy, unspecified trimester (principal); Z3A.00 Weeks of gestation of pregnancy not specified | CPT/HCPCS: 81000 ==

== ENCOUNTER → 2023-06-10 09:31 | Outpatient (BNVA) | payer MEDICAID, SELFPAY | PROVIDERS: PCP Family Medicine; Visit Provider Obstetrics & Gynecology | DX: Z34.93 Encounter for supervision of normal pregnancy, unspecified, third trimester (principal); Z3A.39 39 weeks gestation of pregnancy | CPT/HCPCS: 76816 ==

== ENCOUNTER → 2023-06-12 07:58 | Outpatient (BNVA) | payer MEDICAID, SELFPAY | PROVIDERS: PCP Family Medicine; Visit Provider Obstetrics & Gynecology | DX: Z34.80 Encounter for supervision of other normal pregnancy, unspecified trimester (principal); Z3A.00 Weeks of gestation of pregnancy not specified | CPT/HCPCS: 81000 ==

== ENCOUNTER 2023-06-13 22:10 | Inpatient (IN) | payer MEDICAID, SELFPAY ==
[2023-06-13] VITALS (47 sets, daily range): BP systolic 106–188; BP diastolic 59–104; PULSE 67–90; RESP 17; TEMP 35.9–36.7; O2SAT 97–99; BMI 42.4
[2023-06-13 09:02] LABS: Basophils % 0.3 %; Eosinophils # 0.1 10^3/uL (0.0-0.8); Eosinophils % 0.9 %; Hematocrit 32.7 % (36-47); Lymphocytes # 1.3 10^3/uL (0.8-4.8); Lymphocytes % 13.6 %; Mean Corpuscular HGB Conc 32.1 g/dL (30-55); Mean Corpuscular Volume 84.1 fl (85-98); Mean Platelet Volume 12.3 fL (7.4-10.4); Monocytes # 0.5 10^3/uL (0.2-0.9); Monocytes % 5.2 %; Neutrophils # 7.76 10^3/uL (1.8-7.7); Neutrophils % 79.6 %; Nucleated Red Blood Cells % 0 %; Platelet Count 196 10^3/cmm (157-399); Red Blood Count 3.89 10^6/uL (3.85-5.65); White Blood Count 9.76 10^3/uL (3.29-11.43)
[2023-06-13] MEDS: miSOPROStol 100 mcg tablet 25 MCG VAGINAL ×3 (09:07→18:01)
[2023-06-13 10:42] LABS: Add Urine Microscopic? YES; Bilirubin Urine Neg (Negative); Blood Urine 3+ (Negative); Glucose Urine UA Norm (Normal); Ketones Urine Negative (Negative); Leukocyte Esterase Urine 2+ (Negative); Nitrate Urine Negative (Negative); Protein Urine Neg (Negative); Urine Appearance Clear (CLEAR); Urine Color Yellow (Yellow); Urobilinogen Urine Norm (Negative); pH Urine 5 (5-7)
[2023-06-13 10:43] LABS: Add Urine Culture? Yes; Bacteria Urine 2+ /hpf
[2023-06-13 10:43] LABS: Alanine Aminotransferase < 5 U/L (0-33); Albumin Level 3.5 g/dL (3.5-5.2); Alkaline Phosphatase 124 U/L (35-105); Anion Gap 14.9 (5-19); Aspartate Amino Transferase 14 U/L (0-32); Blood Urea Nitrogen 10 mg/dL (6-20); Calcium 8.6 mg/dL (8.5-10.5); Carbon Dioxide 21 mmol/L (22-29); Chloride 104 mmol/L (98-107); Globulin 3.1 g/dL (1.3-4.6); Glomerular Filtration Rate 194.5 mL/min (90-130); Glucose 91 mg/dL (65-115); Osmolality Calculated 281 mOsm/kg (285-295); Potassium 3.9 mmol/L (3.5-5.1); Sodium 136 mmol/L (136-145); Total Bilirubin 0.2 mg/dL (0.15-1.2); Total Protein 6.6 g/dL (6.6-8.7); Uric Acid 3.2 mg/dL (2.4-5.7)
[2023-06-13 10:45] LABS: Creatinine Clr Calc Pharmacy 301.9416
[2023-06-13 10:49] LABS: Urine Creatinine 123 mg/dL (28-217); Urine Protein Random 11 mg/dL
[2023-06-13 10:50] LABS: UPRO/UCREAT Ratio 0.09 mg/mg CR
--- NOTE | 2023-06-13 23:10 | P.ANESASSM_ITS ---
Pre-Anesthetic Assessment Height/Weight: Height 1.73 m Weight 126.552 kg Temp Pulse Resp BP Pulse Ox O2 Del Method 96.6 F L 80 17 142/75 99 Room Air 06/13/23 15:34 06/13/23 23:35 06/13/23 08:20 06/13/23 23:35 06/13/23 23:31 06/13/23 22:02 Preop Diagnosis: IUP epidural Familial anesthetic complications: none Was Beta Karlo taken within 24 hours: N/A Was Clonidine taken within 24 hours: N/A Social No alcohol and No tobacco Exam alert and oriented x 3 Airway Submandibular: within normal limits Cervical ROM: within normal limits Mallampati: Class II Dentition: full History/ROS No significant complaints Metabolic Morbid Obesity Anesthetic Plan ASA status: 3 Anesthesia: Anesthesia Evaluation and Regional (specify below) (epidural) Medications/Allergies Home Medications Medication Instructions Recorded Confirmed Last Taken Type prenat.vits,erasmo,yxk-cbxm-zkvks 1 tab PO DAILY 11/04/22 06/12/23 05/25/23 18:00 History 1 tab ferrous sulfate 325 mg (65 mg 325 mg PO DAILY 04/16/23 06/12/23 05/25/23 18:00 History iron) tablet (Iron (ferrous 325 mg sulfate)) buspirone 7.5 mg tablet 10 mg PO DAILY 05/26/23 06/12/23 05/25/23 18:00 History 10 mg Allergies Allergy/AdvReac Type Severity Reaction Status Date / Time codeine Allergy Severe ALGY-Hives, Verified 06/12/23 14:39 difficulty breathing erythromycin base Allergy ADR-Abdominal Verified 06/12/23 14:39 [From Erythrocin] Pain, hives Current Medications Generic Name Dose Route Start Last Admin Trade Name Freq PRN Reason Stop Dose Admin Lactated Ringer's 1,000 mls @ 999 mls/hr 06/13/23 22:06 06/13/23 23:19 Lactated Ringers IV 999 mls/hr .Q1H1M PRN Administration See label comments PFSH Anesthesia Medical History No pertinent past medical history neghx:htn,dm,thyroid,dvt/pe PCP: Dr. Coats Anxiety RhD negative Surgical History H/O right knee surgery Family History Father Diabetes Hypertension Grandmother Hypertension maternal Grandfather Hypertension paternal Unknown Cancer Denies a family hx of ovarian, uterine, colon, pancreatic, thyroid cancers. Paternal great aunt had breast cancer. (Type unknown) Other Psychiatric illness Denies family history of CAD (coronary artery disease) Clotting disorder Dementia Hyperlipidemia Chronic kidney disease (CKD) Anesthesia complication Bleeding disorder Lung disease Stroke Female Reproductive History : 2 Data Anesthesia 06/13/23 07:54 06/13/23 09:41 Short CBC 06/13/23 Range/Units 07:54 WBC 9.76 (3.29-11.43) 10^3/uL Hgb 10.50 L (11.27-16.99) g/dL Hct 32.7 L (36-47) % MCV 84.1 L (85-98) fl Plt Count 196 (157-399) 10^3/cmm Neut % (Auto) 79.6 % Neut # (Auto) 7.76 H (1.8-7.7) 10^3/uL BMP 06/13/23 09:41 Sodium 136 Potassium 3.9 Chloride 104 Carbon Dioxide 21 L BUN 10 Creatinine 0.4 L Glucose 91 Calcium 8.6 Liver Function 06/13/23 Range/Units 09:41 Total Bilirubin 0.2 (0.15-1.2) mg/dL AST 14 (0-32) U/L ALT < 5 (0-33) U/L Alkaline Phosphatase 124 H (35-105) U/L Albumin 3.5 (3.5-5.2) g/dL Urine 06/13/23 Range/Units 07:59 Urine Color Yellow (Yellow) Urine Appearance Clear (CLEAR) Urine pH 5 (5-7) Ur Specific [place] 1.020 (1.005-1.030) Urine Protein Neg (Negative) Urine Glucose (UA) Norm (Normal) Urine Ketones Negative (Negative) Urine Nitrate Negative (Negative) Urine Bilirubin Neg (Negative) Ur Leukocyte Esterase 2+ H (Negative) Urine RBC 5-10 H (0-2) /hpf Urine WBC 10-15 H (0-5) /hpf Blood Bank 06/13/23 07:54 Blood Type B Negative Rho(D) Type Rh negative Antibody Screen Negative Cardiac Studies: 2 No Data to Display
[2023-06-13] MEDS: lactated ringers 1,000 ML 999 ML IV (23:19)
[2023-06-13] MEDS: ROPivacaine syringe 100 MG/50 ML SYRINGE 10 MG EPIDURAL (23:40)
--- NOTE | 2023-06-13 23:40 | ANES.PROC ---
Anesthesia Procedures Procedure/Date: 06/13/23 epidural Epidural: Time Out Performed: Yes Consents Signed: Procedure Consent Consent: from patient, risks and benefits reviewed and patient agrees to proceed Lumbar Level: L3-L4 Epidural position: sitting Epidural procedure: sterile prep of area, 1% lidocaine to numb the area, 18 g needle, negative for paresthesia passed, neg for paresthesia, test dose given, 1.5% xylocaine 1:200k epi, placed PCEA, no systemic response, sterile dressing applied, L.U.D. no apparent complications and 0.2% Ropiavacaine @ mls/hr (10) Additional Comments: BETI at 5.5, negative blood/CSF upon aspiration. catheter threaded to 13 at skin.
[2023-06-14] VITALS (77 sets, daily range): BP systolic 101–163; BP diastolic 53–96; PULSE 64–144; RESP 18; TEMP 36.2–36.7; O2SAT 95–97
[2023-06-14 03:13] LABS: Amphetamines Screen Urine Negative (Negative); Barbiturates Screen Urine Negative (Negative); Benzodiazepines Screen Urine Negative (Negative); Cocaine Screen Urine Negative (Negative); Opiate Screen Urine Negative (Negative); PCP Screen Urine Negative (Negative); THC Screen Urine Negative (Negative)
[2023-06-14] MEDS: ROPivacaine syringe 100 MG/50 ML SYRINGE 10 MG EPIDURAL ×3 (04:13→12:29)
[2023-06-14] MEDS: dextrose 5%-lactated ringers 1,000 ML 125 ML IV ×2 (04:38→12:30)
[2023-06-14] MEDS: acetaminophen 325 mg Tablet 650 MG PO (08:27)
--- NOTE | 2023-06-14 09:39 | PM.OPHPUD ---
Labor & Delivery H&P Update Date of Procedure: June 14, 2023 Date H&P Performed: 06/12/23 H&P update information: I have reviewed H&P completed within last 30 days, I have examined patient prior to procedure and No changes to prior documentation Admission Diagnosis: Preop diagnosis: IUP
--- NOTE | 2023-06-14 09:48 | PM.PN ---
Subjective Subjective: Ms. Das is a 27 year old established patient with LMP of 09/13/2022, JAMISON 06/19/2022 consistent with 8 week dating scan, placing her at 39+1/7 weeks. Refers feeling comfortable with the epidural. Vitals/I&O/Wt Last Vital Signs Temp 97.2 F L 06/14/23 05:07 Pulse 71 06/14/23 09:46 Resp 17 06/13/23 08:20 BP 129/74 06/14/23 09:46 Pulse Ox 96 06/14/23 00:09 O2 Del Method Room Air 06/14/23 05:58 06/13/23 06/14/23 06/14/23 22:59 06:59 14:59 Intake Total 50 / 50 50 / 50 Output Total 700 / 700 Balance -650 / -650 50 / 50 Weight last 48 hrs Weight 126.552 kg Physical Exam Narrative: GA: Alert and oriented ?3. Lungs: Clear to auscultation bilaterally. Heart: Regular rhythm and rate. Abdomen: Gravid, full the height equals dates, nontender. MARKET INVESTIGATOR: SVE; dilation: 10 cm, effacement: 100%, station: -1, presentation: VX, membranes: AROM clear. Extremities: no edema, no cyanosis, no calves pain. heart tracing: Basal rate: 140's bpm, Variability: moderate, Accelerations: present, Decelerations: absent, Contraction: q3min. Urinary Catheter Management: Matthew: Cath Placed During This Visit: yes Reason for Continuing Indwelling Catheter: Other Urinary Catheter Date of Insertion: 06/14/23 Urinary Catheter Time of Insertion: 00:16 Data 06/13/23 07:54 06/13/23 09:41 Micro: Microbiology 06/13/23 07:59 Urine Culture - Preliminary Urine,Clean Catch A&P Assessment and plan (1) Term : Ms. Das is a 27 year old established patient with LMP of 09/13/2022, JAMISON 06/19/2022 consistent with 8 week dating scan, placing her at 39+1/7 weeks. complicated by chronic hypertension, macrosomia, and obesity admitted for induction. Induction started with misoprostol for cervical ripening, followed by oxytocin augmentation. She had progress adequately. AROM show clear fluid. scalp stimulation with good. heart tracing category 1. Anticipate vaginal delivery. (2) Chronic hypertension during , antepartum: (3) Obesity affecting : Qualifiers: Trimester: second trimester Obesity type affecting : other obesity due to excess calories Qualified Code(s): O99.212 - Obesity complicating , second trimester; E66.09 - Other obesity due to excess calories (4) macrosomia during in third trimester: Qualifiers: Fetus number: single or unspecified fetus Qualified Code(s): O36.63X0 - Maternal care for excessive growth, third trimester, not applicable or unspecified Attestations Medical Necessity Statement*: Professional opinion poor admitting diagnosis Coding Level of Care Code Acute Code for Chg Fwd Diagnoses Term Z34.90 Chronic hypertension during , antepartum O10.919 Other obesity due to excess calories affecting in second trimester O99.212; E66.09 Trimester: second trimester Obesity type affecting : other obesity due to excess calories macrosomia during in third trimester, single or unspecified fetus O36.63X0 Fetus number: single or unspecified fetus
[2023-06-14] MEDS: ondansetron 2 mg/ML SDV 2 mL 4 MG IVP (15:28)
[2023-06-14] MEDS: carboprost tromethamine 250 mcg/mL Amp IM (15:31)
--- NOTE | 2023-06-14 15:39 | PM.DELIVERY ---
Delivery Note: Date of delivery: June 14, 2023 Pre-delivery diagnoses: Term Chronic hypertension Maternal obesity Post-delivery diagnoses: Term delivered. Chronic hypertension Morbid obesity Procedure: Spontaneous vaginal delivery Delivering Physician: Asa Rowley MD Estimated blood loss (mL): 500 Pre-Delivery Course: The patient is a 27yo at 39+1 weeks EGA who has been receiving care from [facility]. She she had a complicated by chronic hypertension and morbid obesity. Admitted for induction HPI: Received appropriate care. Daily vitamins since start of care. labs have all been normal, including negative for HIV. She was found to negative for Group B Strep from screening at 36 weeks. She has gained approximately 46 lbs throughout the . She denies a history of HTN during . Glucose tolerance screening for gestational diabetes was negative. Delivery: The patient was noted to be complete and pushing, so was placed in the dorsal lithotomy position, prepped and draped in the usual sterile fashion for a vaginal delivery. Pt. Noted to have epidural anesthesia. At 1459 the patient delivered a viable at 39 weeks male weighing 4050 g with scores of 8 and 9 at one and five minutes, respectively. The vertex was delivered spontaneously over intact perineum. The patient was asked to push and the head delivered spontaneously in the CORINA position, over an intact perineum. A nuchal cord was checked and none noted. The anterior shoulder delivered easily and the posterior shoulder followed. The remainder of the was easily delivered and the oropharynx and nasopharynx was bulb suctioned. The was noted to have spontaneous cry and spontaneous movement of all four extremities. The cord was clamped x 2 and cut and noted to have 2 arteries and one vein. The infant was passed to the mother's abdomen where nursing personnel were in attendance. Cord blood sample was then obtained. The placenta delivered intact spontaneously and the uterus was explored. 20 units of Pitocin was placed in the IV bag to firm the uterus. Examination of the cervix and vaginal vault did not reveal any lacerations. Continued bleeding after placental delivery, fundal massage and Hemabate was given to control bleeding. Examination of the perineum showed second-degree perineal laceration. The aceration was repaired with 2-0 Vicryl in the normal fashion in a running non locking fashion to reapproximate the laceration in layers. The vaginal pack was then removed. The patient tolerated this procedure well, and recovered in L&D with her infant. All sponge and needle counts were correct. Post-Delivery Status: Good and stable History History History 2 Term 1 0 Miscarriages/Ectopic 0 Living Children 1 Coding Level of Care Code Acute Code for Chg Fwd
--- NOTE | 2023-06-14 15:46 | PM.OPHPUD ---
Labor & Delivery H&P Update Date of Procedure: June 13, 2023 Date H&P Performed: 06/12/23 H&P update information: I have reviewed H&P completed within last 30 days, I have examined patient prior to procedure and No changes to prior documentation Admission Diagnosis: Preop diagnosis: IUP
[2023-06-14] MEDS: loperamide 2 mg Capsule 4 MG PO (16:11)
[2023-06-14] MEDS: HYDROcodone-acetaminophen 5-325 mg Tablet PO (18:30)
[2023-06-14] MEDS: docusate sodium 100 mg Capsule PO (20:11)
[2023-06-14] MEDS: lanolin oint 7 gm 1 APPLIC TOPICAL (20:11)
[2023-06-14] MEDS: ibuprofen 800 mg tablet PO (20:11)
[2023-06-15] MEDS: HYDROcodone-acetaminophen 5-325 mg Tablet PO ×2 (00:54→07:16)
[2023-06-15 01:40] VITALS: TEMP 36.4
[2023-06-15 04:00] VITALS: BP 112/58; PULSE 98; RESP 18; TEMP 36.6; TEMP 36.7; O2SAT 95
[2023-06-15 04:06] LABS: Hematocrit 25.4 % (36-47); Mean Corpuscular HGB Conc 32.3 g/dL (30-55); Mean Corpuscular Hemoglobin 27.2 pg (27-33); Mean Corpuscular Volume 84.4 fl (85-98); Mean Platelet Volume 11.9 fL (7.4-10.4); Platelet Count 176 10^3/cmm (157-399); Red Blood Count 3.01 10^6/uL (3.85-5.65); White Blood Count 9.67 10^3/uL (3.29-11.43)
[2023-06-15] MEDS: ferrous sulfate EC 325 mg Tablet PO (09:15)
[2023-06-15] MEDS: ibuprofen 800 mg tablet PO ×2 (09:15→15:47)
[2023-06-15] MEDS: BuSPIRONE 10 mg Tablet PO (09:15)
[2023-06-15] MEDS: PRENATAL VIT NO.130/IRON/FOLIC 1 EACH TABLET PO (09:15)
[2023-06-15] MEDS: docusate sodium 100 mg Capsule PO (09:15)
--- NOTE | 2023-06-15 09:39 | ANE.PACU2 ---
Inpatient post-anesthesia follow up: Airway intact: Yes Vital signs: Temperature 98.0 F Pulse Rate 98 Respiratory Rate 18 Blood Pressure 112/58 Pulse Oximetry 95 Oxygen Delivery Me thod Room Air Oxygen Flow Rate Fraction of Inspir ed Oxygen Hydration adequate: Yes Nausea and vomiting: No Pain level: 1 Mental status: Baseline Epidural Start/End: Epidural Start Date: 06/13/23 Epidural Start Time: 23:10 Epidural End Date: 06/14/23 Epidural End Time: 16:45
[2023-06-15 10:55] VITALS: BP 125/70; PULSE 106; RESP 16; TEMP 36.8
[2023-06-15 12:01] VITALS: BP 125/70; PULSE 106; RESP 16; TEMP 36.8
--- NOTE | 2023-06-15 16:42 | PM.OBGYDC ---
Discharge Providers RADIOLOGY CLERK Date of Admission: 06/13/23 22:10 Date of Discharge: 06/15/23 Attending Provider at Admission: Asa Rowley MD Attending Provider at Discharge: Asa Rowley MD Primary RADIOLOGY CLERK: Asa Rowley MD Primary Care Provider: Edil Coats MD Diagnoses at Discharge Discharge Diagnosis (1) Term : Status: Acute (2) Chronic hypertension during , antepartum: Status: Acute (3) Obesity affecting : Status: Acute Qualifiers: Trimester: second trimester Obesity type affecting : other obesity due to excess calories Qualified Code(s): O99.212 - Obesity complicating , second trimester; E66.09 - Other obesity due to excess calories (4) macrosomia during in third trimester: Status: Acute Qualifiers: Fetus number: single or unspecified fetus Qualified Code(s): O36.63X0 - Maternal care for excessive growth, third trimester, not applicable or unspecified Reason for Visit Reason for Visit: induction for gestational hypertension Brief History: The patient is a 27yo at 39+1 weeks EGA who has been receiving care from [facility]. She had a complicated by chronic hypertension and morbid obesity. Admitted for induction HPI: Received appropriate care. Daily vitamins since start of care. labs have all been normal, including negative for HIV. She was found to negative for Group B Strep from screening at 36 weeks. She has gained approximately 46 lbs throughout the . She denies a history of HTN during . Glucose tolerance screening for gestational diabetes was negative. Hospital Course Hospital Course Ms. Das is a 27 year old established patient with LMP of 09/13/2022, JAMISON 06/19/2022 consistent with 8 week dating scan, placing her at 39+1/7 weeks when was admitted for induction due to chronic hypertension. Misoprostol was given for cervical ripening then she progressed with oxytocin augmentation to have a spontaneous vaginal delivery of a term male infant weight 4050g with Apgars 8/9. observation was uneventful. Tolerating diet well. Ambulating without difficulty. She was counseled regarding pelvic rest for 6 weeks (no sex, no tampons, no vaginal douches). Return to the emergency room if any fever, increased bleeding or pain. Information Peripartum Data: Delivery Method: Vaginal Physical Exam Narrative: GA; alert and oriented x 3 HEENT: normal Breasts: engorged Nipples - skin intact Lungs; clear to auscultation Heart: regular rhythm, no murmurs. Abd: Appropriately tender. BS+. Uterine fundus below umbilicus. No Fundal Tenderness. Perineum: normal lochia. Extremities: no edema, no cyanosis, no tenderness. Urinary Catheter Management: Matthew: Cath Placed During This Visit: yes Reason for Continuing Indwelling Catheter: Other Urinary Catheter Date of Insertion: 06/14/23 Urinary Catheter Time of Insertion: 00:16 History History History 2 Term 1 0 Miscarriages/Ectopic 0 Living Children 1 Discharge Data Studies Completed and Pending Laboratory Results WBC 9.67 10^3/uL (3.29-11.43) 06/15/23 03:50 RBC 3.01 10^6/uL (3.85-5.65) L 06/15/23 03:50 Hgb 8.20 g/dL (11.27-16.99) L 06/15/23 03:50 Hct 25.4 % (36-47) L 06/15/23 03:50 MCV 84.4 fl (85-98) L 06/15/23 03:50 MCH 27.2 pg (27-33) 06/15/23 03:50 MCHC 32.3 g/dL (30-55) 06/15/23 03:50 RDW 14.0 % (12.1-15.1) 06/15/23 03:50 Plt Count 176 10^3/cmm (157-399) 06/15/23 03:50 MPV 11.9 fL (7.4-10.4) H 06/15/23 03:50 Neut % (Auto) 79.6 % 06/13/23 07:54 Lymph % (Auto) 13.6 % 06/13/23 07:54 [place] % (Auto) 5.2 % 06/13/23 07:54 Eos % (Auto) 0.9 % 06/13/23 07:54 Baso % (Auto) 0.3 % 06/13/23 07:54 Neut # (Auto) 7.76 10^3/uL (1.8-7.7) H 06/13/23 07:54 Lymph # (Auto) 1.3 10^3/uL (0.8-4.8) 06/13/23 07:54 [place] # (Auto) 0.5 10^3/uL (0.2-0.9) 06/13/23 07:54 Eos # (Auto) 0.1 10^3/uL (0.0-0.8) 06/13/23 07:54 Baso # (Auto) 0.0 10^3/uL (0.0-0.1) 06/13/23 07:54 Nucleated RBC % (auto) 0 % 06/13/23 07:54 Nucleated RBCs # 0.0 /100WBC 06/13/23 07:54 Sodium 136 mmol/L (136-145) 06/13/23 09:41 Potassium 3.9 mmol/L (3.5-5.1) 06/13/23 09:41 Chloride 104 mmol/L (98-107) 06/13/23 09:41 Carbon Dioxide 21 mmol/L (22-29) L 06/13/23 09:41 Anion Gap 14.9 (5-19) 06/13/23 09:41 BUN 10 mg/dL (6-20) 06/13/23 09:41 Creatinine 0.4 mg/dL (0.5-0.9) L 06/13/23 09:41 GFR Calculation 194.5 mL/min (90-130) H 06/13/23 09:41 Glucose 91 mg/dL (65-115) 06/13/23 09:41 Calculated Osmolality 281 mOsm/kg (285-295) L 06/13/23 09:41 Uric Acid 3.2 mg/dL (2.4-5.7) 06/13/23 09:41 Calcium 8.6 mg/dL (8.5-10.5) 06/13/23 09:41 Total Bilirubin 0.2 mg/dL (0.15-1.2) 06/13/23 09:41 AST 14 U/L (0-32) 06/13/23 09:41 ALT < 5 U/L (0-33) 06/13/23 09:41 Alkaline Phosphatase 124 U/L (35-105) H 06/13/23 09:41 Total Protein 6.6 g/dL (6.6-8.7) 06/13/23 09:41 Albumin 3.5 g/dL (3.5-5.2) 06/13/23 09:41 Globulin 3.1 g/dL (1.3-4.6) 06/13/23 09:41 Urine Color Yellow (Yellow) 06/13/23 07:59 Urine Appearance Clear (CLEAR) 06/13/23 07:59 Urine pH 5 (5-7) 06/13/23 07:59 Ur Specific [place] 1.020 (1.005-1.030) 06/13/23 07:59 Urine Protein Neg (Negative) 06/13/23 07:59 Urine Glucose (UA) Norm (Normal) 06/13/23 07:59 Urine Ketones Negative (Negative) 06/13/23 07:59 Urine Blood 3+ (Negative) H 06/13/23 07:59 Urine Nitrate Negative (Negative) 06/13/23 07:59 Urine Bilirubin Neg (Negative) 06/13/23 07:59 Urine Urobilinogen Norm mg/dL (Negative) 06/13/23 07:59 Ur Leukocyte Esterase 2+ (Negative) H 06/13/23 07:59 Urine RBC 5-10 /hpf (0-2) H 06/13/23 07:59 Urine WBC 10-15 /hpf (0-5) H 06/13/23 07:59 Ur Squamous Epith Cells 5-10 /hpf (0-5) H 06/13/23 07:59 Amorphous Sediment Not Reportable 06/13/23 07:59 Urine Bacteria 2+ /hpf (NONE) H 06/13/23 07:59 U Random Total Protein 11 mg/dL 06/13/23 07:59 Urine Creatinine 123 mg/dL (28-217) 06/13/23 07:59 Protein/Creatinin Ratio 0.09 mg/mg CR 06/13/23 07:59 Urine Opiates Screen Negative ng/mL (Negative) 06/13/23 Unknown Ur Barbiturates Screen Negative ng/mL (Negative) 06/13/23 Unknown Ur Phencyclidine Scrn Negative ng/mL (Negative) 06/13/23 Unknown Ur Amphetamines Screen Negative ng/mL (Negative) 06/13/23 Unknown U Benzodiazepines Scrn Negative ng/mL (Negative) 06/13/23 Unknown Urine Cocaine Screen Negative ng/mL (Negative) 06/13/23 Unknown U Marijuana (THC) Screen Negative ng/mL (Negative) 06/13/23 Unknown Blood Type B Negative 06/13/23 07:54 Rho(D) Type Rh negative 06/13/23 07:54 Antibody Screen Negative 06/13/23 07:54 Screen Negative (Negative) 06/15/23 03:50 Vitals Last Vital Signs Temp 98.2 F 06/15/23 12:01 Pulse 106 H 06/15/23 12:01 Resp 16 06/15/23 12:01 BP 125/70 06/15/23 12:01 Pulse Ox 95 06/15/23 04:00 O2 Del Method Room Air 06/15/23 10:55 Results Labs OB ([facility]): Obstetrics US 06/10/23 Blood Type B Negative 06/13/23 Antibody Screen Negative 06/13/23 Hct 25.4 % (36-47) L 06/15/23 Hgb 8.20 g/dL (11.27-16.99) L 06/15/23 Rho(D) Type Rh negative 06/13/23 Plt Count 176 10^3/cmm (157-399) 06/15/23 Hep Bs Antigen Non-reactive (Nonreactive) 12/01/22 Hepatitis C Antibody Non-reactive (Nonreactive) 12/01/22 Rubella IgG Antibody 17.5 IU/mL (0.0-10.0) H 12/01/22 RPR Nonreactive (Nonreactive) 12/01/22 HIV 1&2 Ab & HIV 1 Ag Non-reactive (Non-Reactiv) 12/01/22 TSH 0.60 uIU/mL (0.27-4.20) 06/27/22 Free T4 1.09 ng/dL (0.82-1.77) 06/27/22 C.trachomatis RNA (TMA) Not detected (NOT DETECTED) 12/01/22 N.gonorrhoeae RNA (TMA) Not detected (NOT DETECTED) 12/01/22 T. vaginalis Amp RNA Not detected (NOT DETECTED) 12/01/22 Chlamydia/GC Comment See note 12/01/22 Gest Glucose Tolerance mg/dL 03/27/23 Uric Acid 3.2 mg/dL (2.4-5.7) 06/13/23 HCG, Qual Positive (Negative) H 11/04/22 Urine Opiates Screen Negative ng/mL (Negative) 06/13/23 Ur Barbiturates Screen Negative ng/mL (Negative) 06/13/23 Ur Phencyclidine Scrn Negative ng/mL (Negative) 06/13/23 Ur Amphetamines Screen Negative ng/mL (Negative) 06/13/23 U Benzodiazepines Scrn Negative ng/mL (Negative) 06/13/23 Urine Cocaine Screen Negative ng/mL (Negative) 06/13/23 U Marijuana (THC) Screen Negative ng/mL (Negative) 06/13/23 Micro Urine Specimen 06/13/23 Pap Smear Interpret See note 08/05/22 Discharge Plan Discharge Patient Disposition: Home Condition: Stable Prescriptions: New docusate sodium [Colace] 100 mg capsule 100 mg PO BID Qty: 60 0RF acetaminophen 325 mg capsule 325 mg PO Q4H PRN (Reason: fever or pain) Qty: 60 0RF ferrous sulfate [Iron (ferrous sulfate)] 325 mg (65 mg iron) tablet 325 mg PO BID Qty: 60 0RF ibuprofen 800 mg tablet 800 mg PO TID PRN (Reason: pain) Qty: 60 0RF Continued prenat.vits,erasmo,xvc-qplv-ecimr Tablet 1 tab PO DAILY ferrous sulfate [Iron (ferrous sulfate)] 325 mg (65 mg iron) Tablet 325 mg PO DAILY buspirone 7.5 mg tablet 10 mg PO DAILY Discharge Orders: Discharge Order (Routine); Ordered 06/15/23 Ordered By: Asa Rowley Referrals: Asa Rowley MD [Physician] - 07/27/23 10:30 am Discharge Diet: Usual diet Discharge Activity: Limit activity as instructed Patient Instructions: Depression (DC), Preeclampsia and Eclampsia After Delivery (GEN), Hemorrhage (DC), OB Discharge Report, OB Food/Drug Interaction Guide, Opioid Safety, OB Home Care, OB Vaginal Deliveries - [facility] Activity Restrictions/Additional Instructions: 1. Please call [facility] on next working day to make your appointment in 2 weeks to monitor blood pressure. 2. Please stay home until you come back to the clinic on first post-hospatilization check up. 3. Please follow instructions on your medications CAREFULLY. 4. If you have abdominal incision, do not cover it unless dressing is necessary because of drainage. OK to shower, but avoid bath. Leave steri-strips until they fall off. If they are still on one week after surgery, you may remove them. 5. If you had vaginal surgery or vaginal repair, Dr. Rowley may instruct you to take SITZ bath. 6. Yellow, blood tinged odorous vaginal discharge is usually normal after hysterectomy or vaginal surgeries. 7. No SEXUAL INTERCOURSE, tampons, or douches until you are completely released from the post-operative care. 8. Avoid constipation by eating right and maybe using some Metamucil or Milk of Magnesia. 9. All prescription refills are given during the working hours. Please do no wait till it runs out. Call the clinic at [phone] before your medication runs out. The clinic will get in touch with your doctor to prescribe medications if necessary. 10. Please remain within 40 mile radius from our hospital because emergencies do happen now and then during the post-operative period. 11. If you have stairs at home, take one step at a time slowly and minimize the number of trips. It helps to stay in one floor for the next few days. No lifting except what you can lift by one hand until you are released from the post-operative care. 12. Driving is discouraged until you are well healed. It may be 3-4 weeks before you feel strong enough to drive. You should be able to turn and look through the rear window without pain and you should be able to push the brake pedal very hard without pain before you drive. No fast rules, but SAFETY should be your primary concern. DO NOT drive if you are on sedating medications such as narcotics. 13. Call the clinic (during working hours) to make urgent appointment or go to the Emergency room, if any of the following occurs: i. Vaginal bleeding becomes heavy, more than a period. ii. Incision becomes red and sore, or drains pus. iii. Your TEMPERATURE is over 100.4F or you have chill. iv. IV site becomes red and swollen (a little ``knot?? is usually OK) v. Persistent nausea and vomiting vi. Persistent constipation or diarrhea vii. Rash or allergic reaction to medications. Discharge Attestations RADIOLOGY CLERK Time Spent in Discharge Care*: greater than 30 min Coding Level of Care Code Acute Code for Chg Fwd Diagnoses Term Z34.90 Chronic hypertension during , antepartum O10.919 Other obesity due to excess calories affecting in second trimester O99.212; E66.09 Trimester: second trimester Obesity type affecting : other obesity due to excess calories macrosomia during in third trimester, single or unspecified fetus O36.63X0 Fetus number: single or unspecified fetus
[2023-06-15 17:45] VITALS: BP 126/73; PULSE 103; RESP 16; TEMP 36.7
== END 2023-06-15 17:55 | disposition home or self-care (01) | DRG 806 ==
LOC: OPOB 06-15 09:04
PROVIDERS: Obstetrics & Gynecology; Admitting Provider Obstetrics & Gynecology; PCP Family Medicine; Visit Provider Obstetrics & Gynecology
DX: O99.214 Obesity complicating childbirth (principal); O36.0930 Maternal care for other rhesus isoimmunization, third trimester, not applicable or unspecified; Z37.0 Single live birth; E66.01 Morbid (severe) obesity due to excess calories; O99.344 Other mental disorders complicating childbirth; O36.63X0 Maternal care for excessive fetal growth, third trimester, not applicable or unspecified; O99.02 Anemia complicating childbirth; O70.1 Second degree perineal laceration during delivery; O16.4 Unspecified maternal hypertension, complicating childbirth; Z3A.39 39 weeks gestation of pregnancy; F43.21 Adjustment disorder with depressed mood; F41.9 Anxiety disorder, unspecified; F42.9 Obsessive-compulsive disorder, unspecified
CPT/HCPCS: 36415; 36430; 51702; 59025; 59409; 80053; 80306; 81001; 82570; 84156; 84550; 85025; 85027; 85460; 86850; 86900; 87086; 90384; 96372; 96374; 98960; J2405; J2795; J7120; J7121

== ENCOUNTER 2023-06-16 03:49 | Emergency (ER) | payer MEDICAID, SELFPAY ==
[2023-06-16 03:54] VITALS: BP 162/89; PULSE 150; RESP 20; TEMP 38.8; O2SAT 94; BMI 42.5
--- NOTE | 2023-06-16 03:58 | ECG_ITS ---
[facility] Test Date: 2023-06-16 Pat Name: Dexter Das Department: Room: Gender: Female Cruise Counselor: : 1995 Requested By: Onur Bird Order Number: [id number] Yadav MD: Eddie Connolly M.D. Measurements Intervals [place] Rate: 125 P: 75 GA: 155 QRS: 75 QRSD: 82 T: 14 QT: 293 QTc: 423 Interpretive Statements SINUS TACHYCARDIA NONSPECIFIC ST & T-WAVE ABNORMALITY No previous ECG available for comparison Electronically Signed On 06-16-2023 11:45:22 CDT by Eddie Connolly M.D. [id number]
[2023-06-16] MEDS: ibuprofen 800 mg tablet PO (04:03)
[2023-06-16] MEDS: sodium chloride 0.9% 1,000 ML 999 ML IV (04:04)
[2023-06-16 04:09] LABS: Basophils % 0.4 %; Eosinophils # 0.1 10^3/uL (0.0-0.8); Eosinophils % 1.2 %; Hematocrit 25.2 % (36-47); Lymphocytes # 0.7 10^3/uL (0.8-4.8); Lymphocytes % 11.5 %; Mean Corpuscular HGB Conc 32.1 g/dL (30-55); Mean Corpuscular Hemoglobin 27.2 pg (27-33); Mean Corpuscular Volume 84.6 fl (85-98); Mean Platelet Volume 11.3 fL (7.4-10.4); Monocytes # 0.4 10^3/uL (0.2-0.9); Monocytes % 6.7 %; Neutrophils # 4.51 10^3/uL (1.8-7.7); Neutrophils % 79.5 %; Nucleated Red Blood Cells % 0 %; Platelet Count 163 10^3/cmm (157-399); Red Blood Count 2.98 10^6/uL (3.85-5.65); Red Cell Distribution Width 14.2 % (12.1-15.1); White Blood Count 5.67 10^3/uL (3.29-11.43)
--- NOTE | 2023-06-16 04:11 | ED_ITS ---
HPI - Fever 2 General: Chief Complaint: Fever Stated Complaint: Fever, Time Seen by Provider: 06/16/23 04:01 History of Present Illness: Patient presents to the ER with complaints of having fever chills and congestion. Patient just recently delivered on 331. Patient says she felt congested prior to leaving. Patient has been around people that had influenza A approximately a week ago. Patient is denying any shortness of breath chest pain. Upon arrival patient did have a temperature of 102.0 orally respirations 20 and a pulse of 150. Patient's O2 sat on room air was 94%. Review of Systems 2 General: Reports: 10 or more systems reviewed and unremarkable except in HPI and below PFSH ED 2 PFSH: Medical History No pertinent past medical history neghx:htn,dm,thyroid,dvt/pe PCP: Dr. Coats Anxiety RhD negative Surgical History H/O right knee surgery Family History Father Diabetes Hypertension Grandmother Hypertension maternal Grandfather Hypertension paternal Unknown Cancer Denies a family hx of ovarian, uterine, colon, pancreatic, thyroid cancers. Paternal great aunt had breast cancer. (Type unknown) Other Psychiatric illness Denies family history of CAD (coronary artery disease) Clotting disorder Dementia Hyperlipidemia Chronic kidney disease (CKD) Anesthesia complication Bleeding disorder Lung disease Stroke Physical Exam 2 Const: COMMON NORMALS: no acute distress, average body habitus, patient oriented x3, no limitations, healthy appearing, alert and well nourished HENMT: COMMON NORMALS: normocephalic, atraumatic, hearing grossly normal bilaterally, external ears normal, EAC's normal, Normal external nose present, moist oral mucous membranes and oropharynx normal HEAD & SCALP: normocephalic and atraumatic NOSE: Normal external nose present EXTERNAL EAR: Yes external ears normal EXTERNAL AUDITORY CANAL: EAC's normal Eye: COMMON NORMALS: Equal, round and reactive pupils present, EOMs intact bilaterally, conjunctivae normal and no scleral icterus CONJUNCTIVA: Yes conjunctivae normal PUPIL: Yes Equal, round and reactive pupils present Neck/C-Spine: COMMON NORMALS: full ROM, no lymphadenopathy, supple, no meningeal signs and no JVD Chest: COMMONS NORMALS: normal inspection of the chest and normal palpation of entire chest wall Resp: COMMON NORMALS: normal respiratory effort, No retractions, No use of accessory muscles and clear to auscultation bilaterally AUSCULTATION: clear to auscultation bilaterally Cardio: COMMON NORMALS: no JVD, regular rhythm, S1 normal heart sound present, S2 normal heart sound present, No gallops present (Cardio), No clicks present (Cardio), No murmurs present (Cardio) and No rub (Cardio); negative for regular rate (Tachycardic) RATE: abnormal rate (Tachycardic) RHYTHM: regular rhythm HEART SOUNDS: S1 normal heart sound present and S2 normal heart sound present GI: COMMON NORMALS: Normal to inspection, nondistended, normoactive bowel sounds present, Soft to palpation, non-tender, No hepatosplenomegaly present and no masses PALPATION: Yes Soft to palpation and Yes No hepatosplenomegaly present Neuro: COMMON NORMALS: patient oriented x3 SENSORIUM/ORIENTATION: Yes alert MENINGEAL SIGNS: Yes no meningeal signs Course 2 Vital Signs: Vital signs: Vital Signs Temperature 99.2 F 06/16/23 05:39 Pulse Rate 115 H 06/16/23 05:39 Respiratory Rate 16 06/16/23 05:39 Blood Pressure 124/79 06/16/23 05:39 Pulse Oximetry 97 06/16/23 05:39 Oxygen Delivery Me thod Room Air 06/16/23 04:33 MDM - Fever Medical Decision Making Lab work was obtained, patient was given 800 mg of Motrin and 1 L normal saline IV, Dr. Powers was consulted who come in to be seen the patient and thinks it is more of a viral syndrome than endometritis. Patient will be discharged home. Differential Diagnosis Unlikely abdominal pain, acute appendicitis, calculus of kidney, constipation, diverticulitis, endometriosis, gastroenteritis, pancreatitis or small bowel obstruction Medical Records I reviewed the patient's medical records. Lab Data I reviewed the patient's lab results. 06/16/23 03:55 06/16/23 03:55 Laboratory Results WBC 5.67 10^3/uL (3.29-11.43) 06/16/23 03:55 RBC 2.98 10^6/uL (3.85-5.65) L 06/16/23 03:55 Hgb 8.10 g/dL (11.27-16.99) L 06/16/23 03:55 Hct 25.2 % (36-47) L 06/16/23 03:55 MCV 84.6 fl (85-98) L 06/16/23 03:55 MCH 27.2 pg (27-33) 06/16/23 03:55 MCHC 32.1 g/dL (30-55) 06/16/23 03:55 RDW 14.2 % (12.1-15.1) 06/16/23 03:55 Plt Count 163 10^3/cmm (157-399) 06/16/23 03:55 MPV 11.3 fL (7.4-10.4) H 06/16/23 03:55 Neut % (Auto) 79.5 % 06/16/23 03:55 Lymph % (Auto) 11.5 % 06/16/23 03:55 Sutter % (Auto) 6.7 % 06/16/23 03:55 Eos % (Auto) 1.2 % 06/16/23 03:55 Baso % (Auto) 0.4 % 06/16/23 03:55 Neut # (Auto) 4.51 10^3/uL (1.8-7.7) 06/16/23 03:55 Lymph # (Auto) 0.7 10^3/uL (0.8-4.8) L 06/16/23 03:55 Sutter # (Auto) 0.4 10^3/uL (0.2-0.9) 06/16/23 03:55 Eos # (Auto) 0.1 10^3/uL (0.0-0.8) 06/16/23 03:55 Baso # (Auto) 0.0 10^3/uL (0.0-0.1) 06/16/23 03:55 Nucleated RBC % (auto) 0 % 06/16/23 03:55 Nucleated RBCs # 0.0 /100WBC 06/16/23 03:55 Sodium 138 mmol/L (136-145) 06/16/23 03:55 Potassium 4.0 mmol/L (3.5-5.1) 06/16/23 03:55 Chloride 104 mmol/L (98-107) 06/16/23 03:55 Carbon Dioxide 24 mmol/L (22-29) 06/16/23 03:55 Anion Gap 14.0 (5-19) 06/16/23 03:55 BUN 7 mg/dL (6-20) 06/16/23 03:55 Creatinine 0.4 mg/dL (0.5-0.9) L 06/16/23 03:55 GFR Calculation 194.5 mL/min (90-130) H 06/16/23 03:55 Glucose 104 mg/dL (65-115) 06/16/23 03:55 Calculated Osmolality 284 mOsm/kg (285-295) L 06/16/23 03:55 Calcium 9.0 mg/dL (8.5-10.5) 06/16/23 03:55 Total Bilirubin 0.2 mg/dL (0.15-1.2) 06/16/23 03:55 AST 14 U/L (0-32) 06/16/23 03:55 ALT < 5 U/L (0-33) 06/16/23 03:55 Alkaline Phosphatase 86 U/L (35-105) 06/16/23 03:55 Total Protein 6.5 g/dL (6.6-8.7) L 06/16/23 03:55 Albumin 3.3 g/dL (3.5-5.2) L 06/16/23 03:55 Globulin 3.2 g/dL (1.3-4.6) 06/16/23 03:55 Urine Color Light yellow (Yellow) 06/16/23 04:11 Urine Appearance Hazy (CLEAR) A 06/16/23 04:11 Urine pH 7 (5-7) 06/16/23 04:11 Ur Specific Strang 1.010 (1.005-1.030) 06/16/23 04:11 Urine Protein Neg (Negative) 06/16/23 04:11 Urine Glucose (UA) Norm (Normal) 06/16/23 04:11 Urine Ketones Negative (Negative) 06/16/23 04:11 Urine Blood 3+ (Negative) H 06/16/23 04:11 Urine Nitrate Negative (Negative) 06/16/23 04:11 Urine Bilirubin Neg (Negative) 06/16/23 04:11 Urine Urobilinogen Neg mg/dL (Negative) 06/16/23 04:11 Ur Leukocyte Esterase 1+ (Negative) H 06/16/23 04:11 Urine RBC 40-50 /hpf (0-2) H 06/16/23 04:11 Urine WBC 5-10 /hpf (0-5) H 06/16/23 04:11 Ur Squamous Epith Cells 10-15 /hpf (0-5) H 06/16/23 04:11 Amorphous Sediment Not Reportable 06/16/23 04:11 Urine Bacteria Trace /hpf (NONE) 06/16/23 04:11 Influenza Type A Ag negative (Negative) 06/16/23 04:00 Influenza Type B Ag negative (Negative) 06/16/23 04:00 SARS-CoV-2 Ag (Rapid) negative (Negative) 06/16/23 04:00 Group A Strep Rapid Negative (Negative) 06/16/23 05:10 All radiology interpretation(s) finalized by discharge Discharge Plan Discharge Patient Disposition: Home Clinical Impression: Viral infection Fever Qualifiers: Fever type: unspecified Qualified Code(s): R50.9 - Fever, unspecified Condition: Stable Prescriptions: No Action prenat.vits,erasmo,ard-bqen-dmxuh Tablet 1 tab PO DAILY ferrous sulfate [Iron (ferrous sulfate)] 325 mg (65 mg iron) Tablet 325 mg PO DAILY buspirone 7.5 mg tablet 10 mg PO DAILY ibuprofen 800 mg tablet 800 mg PO TID PRN (Reason: pain) Qty: 60 0RF Iron (ferrous sulfate) 325 mg (65 mg iron) tablet 325 mg PO BID Qty: 60 0RF Colace 100 mg capsule 100 mg PO BID Qty: 60 0RF acetaminophen 325 mg capsule 325 mg PO Q4H PRN (Reason: fever or pain) Qty: 60 0RF Discharge Orders: Discharge ED (Routine); Ordered 06/16/23 Ordered By: Onur Bird Referrals: Edil Coats MD [Primary Care Provider] - 1 week Patient Instructions: Fever - Adult, Viral Syndrome - Adult Activity Restrictions/Additional Instructions: Continue to push plenty of fluids. Please continue Tylenol and Motrin alternating [id number] for the next 24 hours. If your symptoms worsen please feel free to return to the ER or follow-up with your PCP/AUDIOLOGY DIRECTOR Coding Level of Care Code ED Director Biomedical [employer] for [facility]
[2023-06-16 04:24] LABS: Alanine Aminotransferase < 5 U/L (0-33); Albumin Level 3.3 g/dL (3.5-5.2); Alkaline Phosphatase 86 U/L (35-105); Aspartate Amino Transferase 14 U/L (0-32); Blood Urea Nitrogen 7 mg/dL (6-20); Carbon Dioxide 24 mmol/L (22-29); Chloride 104 mmol/L (98-107); Globulin 3.2 g/dL (1.3-4.6); Glomerular Filtration Rate 194.5 mL/min (90-130); Glucose 104 mg/dL (65-115); Osmolality Calculated 284 mOsm/kg (285-295); Sodium 138 mmol/L (136-145); Total Bilirubin 0.2 mg/dL (0.15-1.2); Total Protein 6.5 g/dL (6.6-8.7)
[2023-06-16 04:26] LABS: Add Urine Microscopic? YES; Bilirubin Urine Neg (Negative); Blood Urine 3+ (Negative); Glucose Urine UA Norm (Normal); Ketones Urine Negative (Negative); Leukocyte Esterase Urine 1+ (Negative); Nitrate Urine Negative (Negative); Protein Urine Neg (Negative); Urine Appearance Hazy (CLEAR); Urine Color Light yellow (Yellow); Urobilinogen Urine Neg (Negative); pH Urine 7 (5-7)
[2023-06-16 04:27] LABS: Add Urine Culture? No; Bacteria Urine TRACE /hpf; RBC Urine 40-50 /hpf (0-2)
[2023-06-16 04:33] VITALS: BP 124/79; PULSE 124; RESP 16; O2SAT 94
[2023-06-16 04:33] LABS: Influenza A by IFA negative (Negative); Influenza B by IFA negative (Negative); SARS Covid-2 Antigen negative (Negative)
[2023-06-16 05:02] VITALS: BP 124/79; PULSE 115; RESP 16; TEMP 37.3; O2SAT 97
[2023-06-16 05:26] LABS: Rapid Strep A Test Negative (Negative)
[2023-06-16 05:39] VITALS: BP 124/79; PULSE 115; RESP 16; TEMP 37.3; O2SAT 97
== END 2023-06-16 05:40 | disposition home or self-care (01) ==
PROVIDERS: Emergency Provider Emergency Medicine; PCP Family Medicine
DX: R50.9 Fever, unspecified (principal); B34.9 Viral infection, unspecified; Z11.52 Encounter for screening for COVID-19
CPT/HCPCS: 36415; 80053; 81001; 85025; 87040; 87081; 87426; 87804; 87880; 93005; 96360; 96361; 99284; J7030

== ENCOUNTER → 2023-07-03 11:27 | Outpatient (BNVA) | payer MEDICAID, SELFPAY | PROVIDERS: PCP Family Medicine; Visit Provider Obstetrics & Gynecology | DX: O10.919 Unspecified pre-existing hypertension complicating pregnancy, unspecified trimester (principal); Z3A.00 Weeks of gestation of pregnancy not specified | CPT/HCPCS: 85025 ==

== ENCOUNTER → 2023-07-27 11:10 | Outpatient (BNVA) | payer MEDICAID, SELFPAY | PROVIDERS: PCP Family Medicine; Visit Provider Obstetrics & Gynecology | DX: Z30.8 Encounter for other contraceptive management (principal) | CPT/HCPCS: 81025 ==

== ENCOUNTER 2024-03-31 15:16 | Outpatient (CLI) | payer MEDICAID, SELFPAY ==
--- NOTE | 2024-03-31 15:21 | XRR_ITS ---
PROCEDURE INFORMATION: Exam: XR Right Knee Exam date and time: 03/31/2024 3:33 PM Age: 28 years old Clinical indication: Patient HX: Recent right superior knee pain with soreness and tightness, HX of arthroscopy during childhood TECHNIQUE: Imaging protocol: Radiologic exam of the right knee. Views: 3 views. COMPARISON: CR XR knee RT 3V* [id number] 11/26/2017 11:40 PM FINDINGS: Bones/joints: Normal. Soft tissues: Normal. XR/XR knee RT 3V* [id number] IMPRESSION: No acute findings.
== END 2024-03-31 15:17 | disposition home or self-care (01) ==
LOC: RAD 15:20
PROVIDERS: PCP Family Medicine; Visit Provider Family Medicine
DX: M25.561 Pain in right knee (principal)
CPT/HCPCS: 73562

== ENCOUNTER → 2024-05-30 15:09 | Outpatient (BNVA) | payer SELFPAY | PROVIDERS: PCP Family Medicine; Visit Provider Nurse Practitioner | DX: M22.2X1 Patellofemoral disorders, right knee (principal) | CPT/HCPCS: 73560; 73565 ==

== ENCOUNTER → 2024-11-25 08:24 | Outpatient (BNVA) | payer MEDICAID, SELFPAY | PROVIDERS: PCP Family Medicine; Visit Provider Family Medicine | DX: D50.9 Iron deficiency anemia, unspecified (principal) | CPT/HCPCS: 80053; 80061; 82728; 83550; 84439; 84443; 85025 ==